=== PATIENT | female | born 1980 | race Caucasian/White ===

== ENCOUNTER 2016-09-24 19:07 | Emergency (ER) | payer OTHER ==
[~2016-09-24] VITALS: Ht 152.4 cm; Wt 56.0 kg
[~2016-09-24 19:07] MED LIST: ACET-1256 PO; IBUP-1050 PO
[2016-09-24 19:22] VITALS: TEMP 37; Ht 152.4 cm; Wt 56.0 kg
[2016-09-24] MEDS ORDERED: XYLOCAINE 1%/SOD BICARB 20 ML VIAL INFIL ONE (19:45)
[2016-09-24] MEDS ORDERED: SULF800T23 PO (19:59)
[2016-09-24] MEDS ORDERED: CEPH500C PO (19:59)
[2016-09-24] MEDS ORDERED: OXYC1TAB3 PO (19:59)
[2016-09-24] MEDS ORDERED: OXYCODONE IR HOME PACK PO ONE (20:15)
[2016-09-24] MEDS ORDERED: CEPHALEXIN 500MG HOME PACK 1 EA BTL PO ONE (20:15)
[2016-09-24] MEDS ORDERED: SEPTRA DS HOME PACK 1 EA VIAL PO ONE (20:15)
[2016-09-24 20:38] VITALS: BP 115/69; PULSE 101; O2SAT 99
--- NOTE | 2016-09-24 22:38 | EMERGENCY ROOM VISIT NOTE ---
History First contact with patient: 19:26 Chief Complaint: WOUND INFECTION Stated Complaint: FEVER,INFECTION ON LEFT BUT CHEEK,MRSA BEFORE Nursing Triage Summary: Pt has abscess on L buttock. Reports she had a similar lump with drainage last week, but has since resolved. History of Present Illness The patient is a 36 year old female who presents to the Emergency Room with complaints of a draining wound on her left buttock. The patient reports that she noticed swelling and pain 2 days ago, but the wound significant he worsened and started to drain today. She reports feeling feverish. She did take Tylenol at home. She reports significant pain when sitting or walking, rating her discomfort a 7 out of 10. The patient does not recall any prior history of antibiotic resistant infections. She has had multiple wounds on her buttock and other areas in the past. Review of Systems 10 system review was performed and was negative except for pertinent positives and negatives as indicated in history of present illness Past Medical/Surgical History Medical Problems: (1) Depression (2) Gastroesophageal reflux disease (3) Migraine (4) Pyloric stenosis Family History Unremarkable Social History Smoking Status: Current Every Day Smoker Alcohol Use: none Drug Use: none Marital Status: single Occupation Status: unemployed Current/Historical Medications Scheduled Cephalexin Monohydrate (Keflex), 500 MG PO QID Sulfa/Trimethoprim (Bactrim Ds 800MG/160MG), 1 TAB PO BID Scheduled PRN Ibuprofen (Advil), 800 MG PO UD PRN for Pain Oxycodone Ir (Roxicodone Ir), 1-2 TAB PO Q4H PRN for Pain Miscellaneous Medications Acetaminophen (Tylenol), 1,000 MG PO Allergies Coded Allergies: Tramadol (Verified Allergy, Intermediate, ITCHY, 09/24/16) Sumatriptan (Unverified Allergy, Unknown, "OUT OF SPACE.", 09/24/16) Uncoded Allergies: WOOL (Allergy, Unknown, UNKNOWN, 05/21/13) Physical Exam Vital Signs Date Time Temp Pulse Resp B/P Pulse Ox O2 Delivery O2 Flow Rate FiO2 09/24/16 20:38 101 18 115/69 99 Room Air 09/24/16 19:22 37.0 119 16 99 Room Air Pain Rating (0-10): 3.0 Physical Exam CONSTITUTIONAL: Healthy and well nourished. Patient does not appear in any acute distress on initial exam. HEENT: Normocephalic, atraumatic. Pupils equal, round and reactive. NECK: Full active range of motion without discomfort. RESPIRATORY: Clear to auscultation bilaterally with no wheezing, crackles, rhonchi or stridor. CARDIOVASCULAR: Regular rate and rhythm with no murmurs, rubs or gallops. GASTROINTESTINAL: Bowel sounds present in all quadrants. Soft and nontender to palpation. MUSCULOSKELETAL: Full range of motion of all joints without discomfort. INTEGUMENTARY: Examination of the left central and upper buttock region shows an area of erythema and underlying induration an approximate size of a golf ball. There is mild purulent drainage from the wound. The patient has other multiple scars from prior skin wounds. NEUROLOGIC: No focal neurologic deficits noted. Medical Decision & Procedures Medications Administered Medications (Trade) Dose Ordered Sig/Tahir Route Start Time Stop Time Status Last Admin Dose Admin Cephalexin Monohydrate (Keflex 500MG Home Pack) 1 homepack NOW ONCE PO 09/24/16 20:15 09/24/16 20:16 DC 09/24/16 20:38 1 HOMEPACK Trimethoprim/ Sulfamethoxazole (Sulfameth/ Trimeth Ds 800/ 160MG Home Pack) 1 homepack UD ONCE PO 09/24/16 20:15 09/24/16 20:16 DC 09/24/16 20:38 1 HOMEPACK Oxycodone HCl (Roxicodone Immediate Rel 5MG Home Pack) 1 homepack UD ONCE PO 09/24/16 20:15 09/24/16 20:16 DC 09/24/16 20:38 1 HOMEPACK Procedure I&D procedure was performed under local anesthesia after receiving verbal consent from the patient. The area was painted with iodine and allowed to dry. Sterile field was created. Using buffered 1% lidocaine without epinephrine, good local anesthesia was administered. Using a #11 scalpel, a 1 cm incision was made with an approximate 1 mL of purulent drainage. Cultures were collected. Needle drivers were then used to further open underlying loculations before wound irrigation with approximately 250 mL of normal saline. 0.25 inch plain packing was then loosely inserted into all reachable margins of the wound, then a bacitracin dry dressing was applied. The patient tolerated the procedure well. ED Course Patient history and physical exam were performed. Nurse's notes were reviewed. I&D procedure was performed under local anesthesia. Cultures were also collected. The patient was instructed to remove the packing in 48 hours. She may return to the emergency department for this procedure, or if the wound appears to be improving, may also be removed at home. She was provided prescriptions for Keflex, Bactrim DS and OxyIR 5 mg. Return to the emergency department for any progressively worsening swelling, pain or developing fever. The patient was happy with plan of care, voiced understanding of all discharge instructions, and rated her pain a 3 out of 10 at the time of discharge. Medical Decision Impression Primary Impression: Left buttock abscess Departure Information Dispostion Home / Self-Care Condition GOOD Prescriptions Oxycodone Ir (Roxicodone Ir) 5 Mg Tab 1-2 TAB PO Q4H Y for Pain, #15 TAB For Initial Treatment Prov: Golden Albarado PA 09/24/16 Sulfa/Trimethoprim (Bactrim Ds 800MG/160MG) Tab 1 TAB PO BID for 7 Days, #14 TAB Prov: Golden Albarado PA 09/24/16 Cephalexin Monohydrate (Keflex) 500 Mg Cap 500 MG PO QID for 7 Days, #28 CAP Prov: Golden Albarado PA 09/24/16 Forms HOME CARE DOCUMENTATION FORM, IMPORTANT VISIT INFORMATION Patient Instructions My [facility] Additional Instructions Complete all Keflex and Bactrim DS antibiotics as prescribed. Keep wound covered with an antibiotic ointment and dressing. Packing will need to be removed in 48 hours. You may remove the packing yourself, or return to the emergency department. Ibuprofen 800 mg and/or Tylenol 1000 mg every 8 hours. You may also alternate these medications for more effective pain relief: Ibuprofen --4 HRS--> Tylenol --4 HRS--> ibuprofen --4 HRS--> Tylenol .... OxyIR if needed for worse pain. Do not drink or drive while taking OxyIR. Return to the emergency department for any progressively worsening pain, swelling or developing fever.
--- NOTE | 2016-09-26 15:34 | Pharmacy Progress Note ---
ED Pharmacist Culture FollowUp Date of Service: Sep 26, 2016. Patient was sent home with a prescription for Keflex 500mg PO QID x 7 days and Bactrim DS 1 PO BID x 7 days, which should cover the staph aureus (MSSA) growing from the patient's L buttock culture. I approached Sidney PEREZ who had seen the patient last to see if we should deescalate ABX therapy to a single agent as both would cover the organism that is growing. He would prefer we continue both agents for this patient at this time. No further action is required.
== END 2016-09-24 20:42 | disposition home or self-care (01) ==
LOC: C.EDB 19:09 → C.EDD 20:42
DX: L02.31 Cutaneous abscess of buttock (principal); F17.200 Nicotine dependence, unspecified, uncomplicated

== ENCOUNTER 2016-12-18 20:35 | Emergency (ER) | payer OTHER ==
[~2016-12-18] VITALS: Ht 152.4 cm; Wt 54.1 kg
[~2016-12-18 20:35] MED LIST changes: +OXYC1TAB3 PO
[2016-12-18 20:43] VITALS: TEMP 37.1; Ht 152.4 cm; Wt 54.1 kg
[2016-12-18] MEDS ORDERED: NORCO 5/325MG HOME PACK PO ONE (21:30)
[2016-12-18] MEDS ORDERED: SEPTRA DS HOME PACK 1 EA VIAL PO ONE (21:30)
[2016-12-18] MEDS ORDERED: CEPHALEXIN 500MG HOME PACK 1 EA BTL PO ONE (21:30)
[2016-12-18] MEDS ORDERED: SULF800T23 PO (21:39)
[2016-12-18] MEDS ORDERED: CEPH500C PO (21:39)
--- NOTE | 2016-12-18 21:39 | EMERGENCY ROOM VISIT NOTE ---
ED Visit Note First contact with patient: 20:51 Chief Complaint: RED Swollen Bites on Leg/Itchy; Hot to Touch, Painful History of Present Illness: Patient is a 36-year-old female who presents to the emergency Department for evaluation of possible bites to her low back and RIGHT lower sternum. She reports they are warm and painful to touch. She noticed the bite to the RIGHT lower extremity approximately one week ago. This morning , she noticed one to her low back. She's had no fevers or chills. She is not a diabetic. She has had multiple abscesses in the past. The patient rates her current discomfort as an 8/10. She denies any drug use. She denies any nausea or vomiting. Medications: Reviewed and discussed with the patient. Allergies: Sumatriptan, tramadol PMH: No pertinent past medical history. SHx: Patient is a 36-year-old female who lives locally. ROS: All pertinent positive and negative review of systems are appropriately documented in the History of Present Illness. Physical Exam: VITAL SIGNS - Vital signs and Nursing Notes were reviewed. GENERAL -36-year-old female, well-developed, well-nourished, and in no acute distress. SKIN -small subcentimeter abscess noted anterior surface of the RIGHT jimenez. Surrounding erythema. Mild induration. No fluctuance to palpation. No discharge or drainage noted. No lymphatic streaking. Minimally warm to touch. NEURO - Patient is A&Ox3 and communicates appropriately with the provider. ED Course: Patient was seen and evaluated by myself. Wound was unroofed on the RIGHT lower extremity. Purulent discharge expressed. Sample was taken for culture. She was treated with Keflex and Bactrim. She is provided Lisle for breakthrough pain. She was educated on worrisome symptoms for return visit to the emergency department. Patient discharged home afebrile and in good condition. In the evaluation and treatment this patient, the following differential diagnoses were considered: Dermatitis, foreign bodies, amongst others. Impression: Cellulitis with Abscess to the RIGHT Lower Extremity Discharge Instructions: You were seen in the Emergency Department for Incision and Drainage of an abscess to the RIGHT lower extremity. You have been provided Lisle to be used for pain control. This is a narcotic medication. You cannot drive or consume alcohol while on this medicine. This medicine should only be used for pain that cannot be controlled with over-the- counter pain medicines. You were prescribed Keflex and Bactrim to be taken as prescribed. Both of these medications are antibiotics. Stop these medications and contact a medical provider if you were to develop any significant adverse side effects including: wheezing, shortness of breath, passing out, vomiting, or a diffuse rash. Always take antibiotics as directed and COMPLETE the ENTIRE course regardless of the improvement of your symptoms. Proper wound care is essential for adequate wound healing and infection prevention. You can shower and clean the wound with soap and water. Do not scour over the wound. Pat dry with a towel. Do not submerse the wound (i.e. bathe or dish wash) until the sutures have been removed. You can use an antibiotic ointment with a dressing over the wound for the next 3-4 days. After this time you may leave the wound dry and open to the air. If crust develops over the wound you can use a Q-tip to apply a 1:1 peroxide:water solution to clean the wound. Look for signs of infection of the wound including: increased pain, swelling, foul discharge, streaking, or increased temperature. If any of these are noticed you should return to the Emergency Department for further assessment and treatment. As with any laceration you may have received nerve damage to the surrounding tissues. This damage may or may not be permanent. For pain control, you can use the following [id number] medicines (if >12 yo): - Regular strength (325mg/tab) Tylenol (acetaminophen) 2 tabs every 4-6 hours as needed. Do not exceed 12 tablets in a 24 hour period. Avoid taking more than 4 grams (4000 mg) of Tylenol per day. This includes any other sources of acetaminophen you may take on a regular basis. - Regular strength (200 mg/tab) Advil (ibuprofen) 1-2 tabs every 4-6 hours as needed. Do not exceed a dose of 3200 mg per day. Return to the emergency department if your symptoms worsen despite treatment course outlined above. Problem List Medical Problems: (1) Depression Status: Chronic (2) Gastroesophageal reflux disease Status: Chronic (3) Migraine Status: Chronic (4) Pyloric stenosis Permanent Comment: congenital Status: Resolved Current/Historical Medications Scheduled Cephalexin Monohydrate (Keflex), 500 MG PO TID Sulfa/Trimethoprim (Bactrim Ds 800MG/160MG), 1 TAB PO BID Scheduled PRN Ibuprofen (Advil), 600 MG PO UD PRN for Pain Allergies Coded Allergies: Tramadol (Verified Allergy, Intermediate, ITCHY, 12/18/16) Sumatriptan (Verified Allergy, Unknown, "OUT OF SPACE.", 12/18/16) Uncoded Allergies: WOOL (Allergy, Unknown, UNKNOWN, 05/21/13) Vital Signs Date Time Temp Pulse Resp B/P Pulse Ox O2 Delivery O2 Flow Rate FiO2 12/18/16 21:46 94 18 129/73 100 12/18/16 20:43 37.1 95 18 146/64 100 Room Air Medications Administered Medications (Trade) Dose Ordered Sig/Tahir Route Start Time Stop Time Status Last Admin Dose Admin Acetaminophen/ Hydrocodone Bitart (Lisle 5/325mg Home Pack) 1 homepack UD ONCE PO 12/18/16 21:30 12/18/16 21:31 DC 12/18/16 21:44 1 HOMEPACK Cephalexin Monohydrate (Keflex 500MG Home Pack) 1 homepack NOW ONCE PO 12/18/16 21:30 12/18/16 21:31 DC 12/18/16 21:44 1 HOMEPACK Trimethoprim/ Sulfamethoxazole (Sulfameth/ Trimeth Ds 800/ 160MG Home Pack) 1 homepack UD ONCE PO 12/18/16 21:30 12/18/16 21:31 DC 12/18/16 21:44 1 HOMEPACK Departure Information Impression Primary Impression: Cellulitis and abscess of lower extremity Dispostion Home / Self-Care Condition GOOD Prescriptions Sulfa/Trimethoprim (Bactrim Ds 800MG/160MG) Tab 1 TAB PO BID for 10 Days, #20 TAB Prov: Tariq Castillo PA-C 12/18/16 Cephalexin Monohydrate (Keflex) 500 Mg Cap 500 MG PO TID for 10 Days, #30 CAP Prov: Tariq Castillo PA-C 12/18/16 Referrals Shellie Raymond M.D. (MEDICAL) (PCP) Patient Instructions My [facility] Additional Instructions You were seen in the Emergency Department for Incision and Drainage of an abscess to the RIGHT lower extremity. You have been provided Lisle to be used for pain control. This is a narcotic medication. You cannot drive or consume alcohol while on this medicine. This medicine should only be used for pain that cannot be controlled with over-the- counter pain medicines. You were prescribed Keflex and Bactrim to be taken as prescribed. Both of these medications are antibiotics. Stop these medications and contact a medical provider if you were to develop any significant adverse side effects including: wheezing, shortness of breath, passing out, vomiting, or a diffuse rash. Always take antibiotics as directed and COMPLETE the ENTIRE course regardless of the improvement of your symptoms. Proper wound care is essential for adequate wound healing and infection prevention. You can shower and clean the wound with soap and water. Do not scour over the wound. Pat dry with a towel. Do not submerse the wound (i.e. bathe or dish wash) until the sutures have been removed. You can use an antibiotic ointment with a dressing over the wound for the next 3-4 days. After this time you may leave the wound dry and open to the air. If crust develops over the wound you can use a Q-tip to apply a 1:1 peroxide:water solution to clean the wound. Look for signs of infection of the wound including: increased pain, swelling, foul discharge, streaking, or increased temperature. If any of these are noticed you should return to the Emergency Department for further assessment and treatment. As with any laceration you may have received nerve damage to the surrounding tissues. This damage may or may not be permanent. For pain control, you can use the following [id number]-[id number] medicines (if >12 yo): - Regular strength (325mg/tab) Tylenol (acetaminophen) 2 tabs every 4-6 hours as needed. Do not exceed 12 tablets in a 24 hour period. Avoid taking more than 4 grams (4000 mg) of Tylenol per day. This includes any other sources of acetaminophen you may take on a regular basis. - Regular strength (200 mg/tab) Advil (ibuprofen) 1-2 tabs every 4-6 hours as needed. Do not exceed a dose of 3200 mg per day. Return to the emergency department if your symptoms worsen despite treatment course outlined above.
[2016-12-18 21:46] VITALS: BP 129/73; PULSE 94; O2SAT 100
== END 2016-12-18 21:47 | disposition home or self-care (01) ==
LOC: C.EDB 20:36 → C.EDD 21:47
DX: S80.861A Insect bite (nonvenomous), right lower leg, initial encounter (principal); L02.415 Cutaneous abscess of right lower limb; L03.115 Cellulitis of right lower limb; S30.860A Insect bite (nonvenomous) of lower back and pelvis, initial encounter; W57.XXXA Bitten or stung by nonvenomous insect and other nonvenomous arthropods, initial encounter

== ENCOUNTER 2023-06-21 11:08 | Inpatient (IN) ==
--- NOTE | 2023-06-21 11:31 | Emergency Department Note ---
ED Provider Note History of Present Illness Chief Complaint: Facial Injury/Pain Stated Complaint: EYES SWELLED SHUT, ALLERGIC REACTION ON FACE 42-year-old female who presents the emergency department for evaluation of facial swelling. Symptoms started yesterday morning. The patient did take some Benadryl, but reports that symptoms are worsening. Patient denies any new topical products. Home Medications Medication Instructions Recorded Confirmed Type ciprofloxacin HCl 0.3 % eye drops 3 drp OPR TID #5 mL 04/17/23 04/20/23 Rx Allergies Allergy/AdvReac Type Severity Reaction Status Date / Time tramadol Allergy Intermediate ITCHY Verified 03/07/20 18:55 sumatriptan Allergy Unknown "OUT OF Verified 03/07/20 18:56 SPACE." Relpax TABS Allergy Unknown Unknown Uncoded 03/07/20 18:56 WOOL Allergy Unknown UNKNOWN Uncoded 03/07/20 18:56 Past Med/Surg History Medical History (Updated 05/02/23 @ 00:07 by Lorena Tran) History of anemia History of anxiety History of depression History of drug dependence History of varicella Migraines Surgical History H/O exploratory laparotomy History of wisdom tooth extraction Family History Mother Diabetes Sister Lung disease Social History Smoking Status: Never smoker Tobacco Type: E-cigarettes / Vaping Second Hand Exposure: Yes; Do You Dip or Chew Tobacco: No; Hx Alcohol Use: No Hx Substance Use: Yes Last Used Substance Other:: last unsed november 2017 Preferred Language: French Communication Ability: Effective Boilers Inspector Required: No Beliefs That Will Affect Care: None marital status: Single Current Living Situation Comment: lives with parents and 16 yo daughter Feels Safe at Home: Yes Discharge Plan Visit Data Chief Complaint: Facial Injury/Pain Stated Complaint: EYES SWELLED SHUT, ALLERGIC REACTION ON FACE ED Provider: MARIAN LAMAS Forms Stand Alone Forms: My [employer] Prescriptions Prescriptions: No Action ciprofloxacin HCl 0.3 % drops 3 drp OPR TID Qty: 5 2RF Rx Instructions: to be used in the right ear, not the eye Referrals Referrals: David Raymond, [Primary Care Provider] -
[2023-06-21] MEDS ORDERED: diphenhydrAMINE 50 MG/ML VIAL IV STA (11:34)
--- NOTE | 2023-06-21 11:34 | ED Triage Note ---
Date of Service June 21, 2023 History of Present Illness This patient was briefly evaluated while in triage. An abbreviated physical exam was performed. This patient is a 42-year-old Female who presents to the ED for evaluation of facial swelling. Symptoms started yesterday morning. The patient did take some Benadryl, but reports that symptoms are worsening. Patient denies any new topical products. Patient rates her discomfort a 9 out of 10. Patient denies any difficulty breathing, sore throat, headaches or fever. Physical Exam CONSTITUTIONAL: Healthy and well nourished. HEENT: Examination shows notable edema and erythema with drainage about the eyes. She also has additional crusting lesions on the face. It involves the parietal scalp area as well. RESPIRATORY: Clear to auscultation bilaterally with no wheezing, crackles, rhonchi or stridor. CARDIOVASCULAR: Regular rate and rhythm with no murmurs, rubs or gallops. INTEGUMENTARY: Other than as described in previous HEENT section, no additional skin rashes appreciated without declothing the patient in triage. HEMATOLOGIC: No ecchymosis or petechiae. PSYCHIATRIC: Positive affect. NEUROLOGIC: No focal neurologic deficits noted. Initial orders for labs and / or imaging were placed and patient was placed in the waiting area until a bed is available. Please see further documentation for the full ED course.
--- NOTE | 2023-06-21 11:58 | Emergency Department Note ---
Impression & Plan Facial cellulitis, Otitis media, Leukocytosis ED Provider Note HISTORY OF PRESENT ILLNESS: Patient is a 42-year-old female presenting with facial swelling and eye discharge. Patient reports that 48 hours ago she woke up and her eyes and cheeks were puffy and swollen. She states that she took a Benadryl and then took Zyrtec. She states that in the last 48 hours the swelling of her eyes got significantly worse and she has "dried out." She states that she cannot really smile or open her mouth significantly secondary to her dry cracked skin that is now present on her face. She also is unable to open her eyes secondary to swelling. She is also started to have purulent discharge from her bilateral eyes in the last 24 hours. Denies any fevers. Denies any new medications. Denies any chest pain or shortness of breath. Denies any difficulty swallowing. She denies any new soaps or detergents. Patient denies any recreational drug use recently. Denies any narvaez to the face. She reports that her face feels like it is burning. ROS: as above PHYSICAL EXAM: Constitutional: Patient appears in no acute distress. HENT: Head: Normocephalic and atraumatic. Patient has dry, cracked skin to the entirety of her face. Face has multiple blotchy patches of erythema. Ears: Right TM shows purulent discharge behind TM. Eyes: EOMI, PERRL. Eyelids are sealed shut secondary to dry, cracked skin of the eyelids. Noted to have purulent discharge from the bilateral eyes. Mouth/Throat: Mucous membranes moist. Neck: Trachea midline. Neck supple. Cardiovascular: Tachycardic with regular rhythm. No murmurs, rubs or gallops. Intact distal pulses. Pulmonary/Chest: No respiratory distress. Breath sounds clear and equal bilaterally. No wheezes or rales Abdominal: Abdomen soft, no tenderness, rebound or guarding. Musculoskeletal: No edema, tenderness or deformity noted. Skin: Warm and dry. No rash, erythema, pallor or cyanosis Psychiatric: Appropriate mood and affect for situation. Neurological: Alert and keenly responsive. CN II-XII grossly intact, moving all extremities equally and fully. MDM: - Vitals signs showed tachycardia - History obtained via patient. Patient presents with facial swelling and eye discharge. Patient reports that 48 hours ago she woke up with swelling of her eyes and discharge from her bilateral eyes. Reports in the last 48 hours she is taken a Benadryl and a Zyrtec and states that her swelling is gotten significantly worse and her face has become very dry. She cannot smile or open her mouth significantly secondary to her dry cracked skin. She denies any new food exposures. She denies any fevers. Denies any medications. Denies any new soaps or detergents. She denies any recreational drug use recently. Denies anything blowing up or burning near her face. - Chronic conditions affecting care: Anxiety/depression - Differential diagnoses include, but are not limited to: Cellulitis; facial burn; allergic reaction - Order placed for continuous cardiac monitoring. At this time, monitor showed rate of 94 bpm with normal sinus rhythm, per my interpretation. - External medical records reviewed. ER note dated 04/20/2023 was reviewed. At that time patient was using methamphetamine - Laboratory workup interpreted by myself showed leukocytosis (WBC 26.52) with left shift; stable electrolytes - UA showed evidence of infection - UDS positive for benzos and methamphetamine. - I discussed results with the patient and inquired multiple times as to any products that she may have put on her face. She does have a previous history of methamphetamine use, but she adamantly reports she has not been using it. I even inquired if she has recently tried to use acidic chemicals such as bleach on her face, which she adamantly denies. Patient's facial swelling is cellulitis versus a facial burn for an unknown reason. We did culture the discharge from her bilateral eyes. She is complaining of right ear pain and she does have some purulent discharge behind the right TM. - Blood cultures were obtained. Patient was started on IV vancomycin and Unasyn for broad-spectrum coverage - Discussion was had with social media marketer about patient's case and need for admission - Hospitalist consulted for admission - Patient admitted to [facility] for further evaluation and management. ASSESSMENT AND PLAN: Diagnosis: facial cellulitis; otitis media; leukocytosis Plan: admit Past Med/Surg History Medical History (Updated 06/21/23 @ 15:44 by Elli Wiley PA-C) History of anemia History of anxiety History of depression History of drug dependence History of varicella Migraines Surgical History H/O exploratory laparotomy History of wisdom tooth extraction Family History Mother Diabetes Sister Lung disease Social History Smoking Status: Never smoker Tobacco Type: E-cigarettes / Vaping Second Hand Exposure: Yes; Do You Dip or Chew Tobacco: No; Hx Alcohol Use: No Hx Substance Use: Yes Last Used Substance Other:: last unsed november 2017 Preferred Language: Niuean Communication Ability: Effective Pain Coordinator Required: No Beliefs That Will Affect Care: None marital status: Single Current Living Situation Comment: lives with parents and 16 yo daughter Feels Safe at Home: Yes Allergies Allergies Allergy/AdvReac Type Severity Reaction Status Date / Time tramadol Allergy Intermediate ITCHY Verified 06/21/23 15:26 sumatriptan Allergy Unknown "OUT OF Verified 06/21/23 15:26 SPACE." Relpax TABS Allergy Unknown Unknown Uncoded 06/21/23 15:26 WOOL Allergy Unknown UNKNOWN Uncoded 06/21/23 15:26 Home Meds Home Medications Medication Instructions Recorded Confirmed acetaminophen 500 mg tablet 1,000 mg PO Q6H PRN Pain 06/21/23 06/21/23 (Tylenol Extra Strength) ibuprofen 200 mg tablet 400 mg PO Q6H PRN Pain 06/21/23 06/21/23 Results & Data (ED) Vital Signs Vital Signs - 24 hr 06/21/23 11:29 06/21/23 12:04 06/21/23 12:39 Temperature 36.7 C Temperature Source Temporal Artery Scan Pulse Rate 140 H 94 H Pulse Rate [Apical] 102 H Pulse Rate from SpO2 Sensor Respiratory Rate 18 18 Blood Pressure 128/83 Blood Pressure [Right Arm] 132/84 Blood Pressure Mean 98 Blood Pressure Mean [Right Arm] 100 Pulse Oximetry 98 98 Oxygen Delivery Method Room Air Room Air Sepsis Recent Fever Within 48 Hours No Sepsis New/Unexplained Change in Mental Status No Sepsis Action Taken by Nursing No Action Required 06/21/23 12:30 06/21/23 13:00 06/21/23 13:00 Temperature Temperature Source Pulse Rate 84 91 H Pulse Rate [Apical] Pulse Rate from SpO2 Sensor 87 85 Respiratory Rate 25 H 24 Blood Pressure 115/76 Blood Pressure [Right Arm] Blood Pressure Mean 88 Blood Pressure Mean [Right Arm] Pulse Oximetry 97 100 Oxygen Delivery Method Room Air Room Air Sepsis Recent Fever Within 48 Hours Sepsis New/Unexplained Change in Mental Status Sepsis Action Taken by Nursing 06/21/23 13:34 06/21/23 14:00 06/21/23 14:00 Temperature Temperature Source Pulse Rate 80 81 Pulse Rate [Apical] Pulse Rate from SpO2 Sensor 82 Respiratory Rate 12 28 H Blood Pressure 119/81 Blood Pressure [Right Arm] Blood Pressure Mean 97 Blood Pressure Mean [Right Arm] Pulse Oximetry 100 Oxygen Delivery Method Room Air Sepsis Recent Fever Within 48 Hours Sepsis New/Unexplained Change in Mental Status Sepsis Action Taken by Nursing 06/21/23 14:30 Temperature Temperature Source Pulse Rate 109 H Pulse Rate [Apical] Pulse Rate from SpO2 Sensor 111 H Respiratory Rate 23 Blood Pressure Blood Pressure [Right Arm] Blood Pressure Mean Blood Pressure Mean [Right Arm] Pulse Oximetry 100 Oxygen Delivery Method Room Air Sepsis Recent Fever Within 48 Hours Sepsis New/Unexplained Change in Mental Status Sepsis Action Taken by Nursing Laboratory Data 06/21/23 11:37 06/21/23 11:37 Lab Results 06/21/23 06/21/23 06/21/23 Range/Units 11:37 11:37 11:42 WBC 26.52 H (4.8-10.8) K/ul RBC 4.49 (4.20-5.40) M/uL Hgb 12.7 (12.0-16.0) g/dl Hct 37.4 (37.0-47.0) % MCV 83.3 (80.0-100.0) fL MCH 28.3 (25.0-34.0) pg MCHC 34.0 (32.0-36.0) g/dL RDW Std Deviation 41.0 (36.4-46.3) fL RDW Coeff of Ulices 13.5 (11.5-14.5) % Plt Count 287 (130-400) K/uL MPV 10.9 (9.4-12.4) fL Immature Gran % (Auto) 0.5 % Neut % (Auto) 83.8 % Lymph % (Auto) 9.1 % [place] % (Auto) 6.4 % Eos % (Auto) 0.0 % Baso % (Auto) 0.2 % Neut # (Auto) 22.18 H (1.40-6.50) K/uL Lymph # (Auto) 2.42 (1.20-3.40) K/uL [place] # (Auto) 1.71 H (0.11-0.59) K/uL Eos # (Auto) 0.01 (0.00-0.50) K/uL Baso # (Auto) 0.06 (0.00-0.20) K/uL Immature Gran # (Auto) 0.14 (0.01-0.20) K/uL Sodium 136 (136-145) mmol/L Potassium 3.6 (3.5-5.1) mmol/L Chloride 105 (98-107) mmol/L Carbon Dioxide 22 (21-32) mmol/L Anion Gap 9 (3-11) BUN 8 (6-23) mg/dl Creatinine 0.66 (0.6-1.2) mg/dl Est Cr Clr Drug Dosing Not Reportable Est GFR ( Amer) 128.1 ml/min Est GFR (Non-Af Amer) 110.5 ml/min BUN/Creatinine Ratio 12.1 (10-20) Glucose 110 H (70-99(Fasting)) mg/dl Calcium 9.8 (8.6-10.3) mg/dl Total Bilirubin 0.8 (0.2-1.0) mg/dl AST 31 (13-39) U/L ALT 19 (7-52) U/L Alkaline Phosphatase 66 (34-104) U/L Total Protein 7.9 (6.0-8.3) gm/dl Albumin 4.5 (3.4-5.0) gm/dl Globulin 3.4 (2.5-4.0) gm/dl Albumin/Globulin Ratio 1.3 (0.9-2) Procalcitonin 0.10 (0-0.5) ng/ml Urine Color Urine Appearance (Clear) Urine pH (4.5-7.5) Ur Specific Driscoll (1.000-1.030) Urine Protein (Negative) Urine Glucose (UA) (Negative) Urine Ketones (Negative) Urine Blood (Negative) Urine Nitrite (Negative) Urine Bilirubin (Negative) Urine Urobilinogen (Negative) Ur Leukocyte Esterase (Negative) Urine WBC (Auto) (0-5) /hpf Urine RBC (Auto) (0-4) /hpf U Hyaline Cast (Auto) (0-5) /lpf U Epithel Cells (Auto) (0-5) /lpf Urine Bacteria (Auto) (Negative) Urine Mucus (None Prsent) Urine Opiates Screen (Neg) Ur Methadone, Qual (Neg) Urine Barbiturates (Neg) Ur Phencyclidine (PCP) (Neg) U Amphetamin/Meth Scrn (Neg) MDMA (Ecstasy) Screen (Neg) U Benzodiazepines Scrn (Neg) Ur Cocaine Metabolite (Neg) U Marijuana (THC) Screen (Neg) 06/21/23 06/21/23 Range/Units 13:26 13:26 WBC (4.8-10.8) K/ul RBC (4.20-5.40) M/uL Hgb (12.0-16.0) g/dl Hct (37.0-47.0) % MCV (80.0-100.0) fL MCH (25.0-34.0) pg MCHC (32.0-36.0) g/dL RDW Std Deviation (36.4-46.3) fL RDW Coeff of Ulices (11.5-14.5) % Plt Count (130-400) K/uL MPV (9.4-12.4) fL Immature Gran % (Auto) % Neut % (Auto) % Lymph % (Auto) % [place] % (Auto) % Eos % (Auto) % Baso % (Auto) % Neut # (Auto) (1.40-6.50) K/uL Lymph # (Auto) (1.20-3.40) K/uL [place] # (Auto) (0.11-0.59) K/uL Eos # (Auto) (0.00-0.50) K/uL Baso # (Auto) (0.00-0.20) K/uL Immature Gran # (Auto) (0.01-0.20) K/uL Sodium (136-145) mmol/L Potassium (3.5-5.1) mmol/L Chloride (98-107) mmol/L Carbon Dioxide (21-32) mmol/L Anion Gap (3-11) BUN (6-23) mg/dl Creatinine (0.6-1.2) mg/dl Est Cr Clr Drug Dosing Est GFR ( Amer) ml/min Est GFR (Non-Af Amer) ml/min BUN/Creatinine Ratio (10-20) Glucose (70-99(Fasting)) mg/dl Calcium (8.6-10.3) mg/dl Total Bilirubin (0.2-1.0) mg/dl AST (13-39) U/L ALT (7-52) U/L Alkaline Phosphatase (34-104) U/L Total Protein (6.0-8.3) gm/dl Albumin (3.4-5.0) gm/dl Globulin (2.5-4.0) gm/dl Albumin/Globulin Ratio (0.9-2) Procalcitonin (0-0.5) ng/ml Urine Color Yellow Urine Appearance Cloudy A (Clear) Urine pH 6.0 (4.5-7.5) Ur Specific Driscoll 1.018 (1.000-1.030) Urine Protein 1+ H (Negative) Urine Glucose (UA) Negative (Negative) Urine Ketones 2+ H (Negative) Urine Blood Trace H (Negative) Urine Nitrite Negative (Negative) Urine Bilirubin Negative (Negative) Urine Urobilinogen Negative (Negative) Ur Leukocyte Esterase Trace H (Negative) Urine WBC (Auto) 5-10 H (0-5) /hpf Urine RBC (Auto) 0-4 (0-4) /hpf U Hyaline Cast (Auto) 1-5 (0-5) /lpf U Epithel Cells (Auto) >30 H (0-5) /lpf Urine Bacteria (Auto) 1+ H (Negative) Urine Mucus Present A (None Prsent) Urine Opiates Screen Neg (Neg) Ur Methadone, Qual Neg (Neg) Urine Barbiturates Neg (Neg) Ur Phencyclidine (PCP) Neg (Neg) U Amphetamin/Meth Scrn Pos H (Neg) MDMA (Ecstasy) Screen Neg (Neg) U Benzodiazepines Scrn Pos H (Neg) Ur Cocaine Metabolite Neg (Neg) U Marijuana (THC) Screen Neg (Neg) Administered Medications Discontinued Medications Diphenhydramine HCl (Diphenhydramine 50 Mg/Ml Vial) 50 mg IV NOW STA Stop: 06/21/23 11:35 Last Admin: 06/21/23 12:01 Dose: 50 mg Documented By: DANNA Vancomycin HCl 1,250 mg/ (Sodium Chloride) 525 mls @ 200 mls/hr IV NOW ONE Stop: 06/21/23 14:50 Last Admin: 06/21/23 14:30 Dose: 200 mls/hr Documented By: DANNA Ampicillin Sodium/Sulbactam Sodium 3,000 mg/ Sodium Chloride 100 mls @ 200 mls/hr IV NOW STA Stop: 06/21/23 13:48 Last Infusion: 06/21/23 14:26 Dose: 0 mls/hr Documented By: Admin: 06/21/23 13:56 Dose: 200 mls/hr Documented By: DANNA Acetaminophen (Ofirmev) 1,000 mg in 100 mls @ 400 mls/hr IV NOW STA Stop: 06/21/23 15:31 Last Infusion: 06/21/23 16:02 Dose: 0 mls/hr Documented By: Admin: 06/21/23 15:36 Dose: 400 mls/hr Documented By: HANSEL Discharge Plan Visit Data Chief Complaint: Facial Injury/Pain Stated Complaint: EYES SWELLED SHUT, ALLERGIC REACTION ON FACE ED Provider: Galina Kuo Discharge Problem: Facial cellulitis, Otitis media, Leukocytosis Forms Stand Alone Forms: [facility] Prescriptions Prescriptions: No Action acetaminophen [Tylenol Extra Strength] 500 mg Tablet 1,000 mg PO Q6H PRN (Reason: Pain) ibuprofen 200 mg Tablet 400 mg PO Q6H PRN (Reason: Pain) Referrals Referrals: David Raymond, [Primary Care Provider] -
[2023-06-21 12:03] LABS: Hematocrit (blood only) 37.4 % (37.0-47.0); Hemoglobin 12.7 g/dl (12.0-16.0); Mean Corpuscular Hemoglobin 28.3 pg (25.0-34.0); Mean Corpuscular Volume 83.3 fL (80.0-100.0); Mean Platelet Volume 10.9 fL (9.4-12.4); Platelet Count 287 K/uL (130-400); RDW Coefficient of Variation 13.5 % (11.5-14.5); Red Blood Count 4.49 M/uL (4.20-5.40); White Blood Count 26.52 K/ul (4.8-10.8)
[2023-06-21] MEDS ORDERED: AMPICILLIN SOD/SULBACTAM SOD 3 GM VIAL IV ONE (12:13)
[2023-06-21] MEDS ORDERED: VANCOMYCIN HCL 1,250 MG in SODIUM CHLORIDE 0.9% 500 ML IV ONE (12:13)
[2023-06-21] MEDS ORDERED: VANCOMYCIN CONSULT ACTIVE PRN ×2 (12:13→16:13)
[2023-06-21 12:17] LABS: Alanine Aminotransferase 19 U/L (7-52); Albumin Globulin Ratio 1.3 (0.9-2); Albumin Level 4.5 gm/dl (3.4-5.0); Alkaline Phosphatase 66 U/L (34-104); Anion Gap 9 (3-11); Aspartate Aminotransferase 31 U/L (13-39); BUN Creatinine Ratio 12.1 (10-20); Bilirubin,Total 0.8 mg/dl (0.2-1.0); Blood Urea Nitrogen 8 mg/dl (6-23); Calcium 9.8 mg/dl (8.6-10.3); Carbon Dioxide 22 mmol/L (21-32); Chloride 105 mmol/L (98-107); Est GFR (African American) 128.1 ml/min; Est GFR (Non-African American) 110.5 ml/min; Globulin 3.4 gm/dl (2.5-4.0); Glucose 110 mg/dl (70-99(Fasting)); Potassium 3.6 mmol/L (3.5-5.1); Sodium 136 mmol/L (136-145); Total Protein 7.9 gm/dl (6.0-8.3)
[2023-06-21 12:32] LABS: Basophils # (auto) 0.06 K/uL (0.00-0.20); Basophils % (auto) 0.2 %; Eosinophils # (auto) 0.01 K/uL (0.00-0.50); Immature Granulocytes # (auto) 0.14 K/uL (0.01-0.20); Immature Granulocytes % (auto) 0.5 %; Lymphocytes # (auto) 2.42 K/uL (1.20-3.40); Lymphocytes % (auto) 9.1 %; Monocytes # (auto) 1.71 K/uL (0.11-0.59); Monocytes % (auto) 6.4 %; Neutrophils # (auto) 22.18 K/uL (1.40-6.50); Neutrophils % (auto) 83.8 %
[2023-06-21] MEDS ORDERED: UNASYN 3000MG / NS q6h IV STA (13:19)
[2023-06-21 13:49] LABS: Appearance Urine Cloudy (Clear); Bacteria Urine Automated 1+ (Negative); Bilirubin Urine Negative (Negative); Blood Urine Trace (Negative); Color Urine Yellow; Epithelial Cell Urine Auto >30 /lpf (0-5); Glucose Urine UA Negative (Negative); Ketones Urine 2+ (Negative); Leukocyte Esterase Urine Trace (Negative); Nitrite Urine Negative (Negative); Protein Urine 1+ (Negative); Specific Gravity Urine 1.018 (1.000-1.030); Urobilinogen Urine Negative (Negative)
[2023-06-21 14:02] LABS: Mucus Urine Present (None Prsent); RBC Urine Automated 0-4 /hpf (0-4)
[2023-06-21 14:19] LABS: Amphetamines+Metham, Urine Pos (Neg); Barbiturates, Urine Neg (Neg); Benzodiazepine, Urine Pos (Neg); Cocaine, Urine Neg (Neg); MDMA (Ecstacy), Urine Neg (Neg); Methadone, Urine Neg (Neg); Opiate, Urine Neg (Neg); Phencyclidine, Urine Neg (Neg)
[2023-06-21] MEDS ORDERED: ACETAMINOPHEN 1,000 MG/100 ML VIAL IV STA ×2 (15:17→20:49)
--- NOTE | 2023-06-21 15:46 | History & Physical Report ---
Date of Service June 21, 2023 Assessment & Plan (1) Facial cellulitis: (2) Leukocytosis: Plan: - Admit to PCU - unknown cause of reaction at this time - pt denies new exposure to medications, cleansers/cream/soaps, drug use, smoke or chemical exposure or vapor. Concerning that pt is not forthcoming with drug use history with mother present at bedside, as well as pt eventually telling me that she got adderall and valium from friend 2-3 days ago? - Concern for allergic vs rapidly progressing facial cellulitis and multiple areas of involvement of the eyes bilaterally, face, R TM with purulent material within past 48 hours. Right TM with purulent material behind it, + tragus tenderness. - CT of the maxillary sinuses/face is pending - Call out to Infectious disease as well as ENT to discuss management options - - ID consulted formally, appreciate recs - ENT - called Dr. Sonny Nielsen synchronous motor assembler for [facility], await call back Denies any recent drug abuse. - WBC of 26 K - Will continue on vanc and zosyn IV now - will modify if per ENT/ID - Cultures of eye drainage obtained in the ER, pending - consider erythromycin eye ointment - Avoid soaps, cleansers - Consider wound consultation pending ENT/ID recs as above (3) Methamphetamine abuse: Plan: - Tachycardic on admission, noted positive tox screening for amphetamines and benzo - Pt admits to using valium for sleep a few days ago, as well as taking an Adderall tablet - these were obtained by a friend, she is not prescribed these medications. PDMP reviewed and discussed with the patient. - Continue drug cessation, advise against opioid medications for pain, can use IV tylenol if needed for pain (4) MDD (major depressive disorder): (5) AYLEEN (generalized anxiety disorder): Plan: - Hx of such - Not currently on medication - noted use of valium as above (6) Tobacco use: Plan: - Encouraged cessation, will order nicotine patch (7) UTI (urinary tract infection): Plan: - UA appears to be infected, antibiotics as prescribed above will cover such - Follow urine culture - Pt denies symptoms presently DVT ppx: teds, scds Lines: 2 PIV CODE: FULL FEN/GI: Allow regular diet Dispo: From home, likely to remain in the hospital x 2 days History of Present Illness Chief Complaint: Facial injury Primary Care Provider: David Raymond DO This is a 42-year-old female with PMHx of methamphetamine drug abuse, tobacco use cigarettes 1 ppd previously, now vapes, AYLEEN who presents to the hospital with facial injury. Pt was seen in March for R ear pain, told she had outer and inner ear infection. A stent was placed in the R ear so that drops could be administered more easily. After that she feels it was better but not back to complete baseline. She has had issues in the R ear for years. This past On Saturday her face abd skin was completely normal. Saturday she woke up and her eyes were puffy, unable to open them, with redness. Over the past 2 days her face swelling has improved but can not open her eyes at all, with pus like exudate gluing her eyes shut. Pt has used black charcoal soap on her face and feels it has dried things out, but had used it previously. Pt also notes some bumps on her scalp behind her ears, which started yesterday. Denies fever, chills, sweats. She denies new cleanser use, exposure to chemical substances, drug use, inhalation, etc. Pt reports that she has been clean from methamphetamine for 2 years. Pt admits after discussion regarding of drug tox that she took valium that was given to her from friend a few days ago to help sleep. She vapes with nicotine and uses a few different vape pens, she last used vape this morning. Denies any recent new fills for vape. Allergies Allergy/AdvReac Type Severity Reaction Status Date / Time tramadol Allergy Intermediate ITCHY Verified 06/21/23 15:26 eletriptan [From Relpax] Allergy Unknown Unknown Verified 06/21/23 16:36 sumatriptan Allergy Unknown "OUT OF Verified 06/21/23 15:26 SPACE." wool Allergy Unknown Unknown Verified 06/21/23 16:36 Home Medications Medication Instructions Recorded Confirmed Type acetaminophen 500 mg tablet 1,000 mg PO Q6H PRN Pain 06/21/23 06/21/23 History (Tylenol Extra Strength) ibuprofen 200 mg tablet 400 mg PO Q6H PRN Pain 06/21/23 06/21/23 History Past Med/Surg History Medical History (Updated 06/21/23 @ 16:42 by Elli Wiley PA-C) History of anemia History of anxiety History of depression History of drug dependence History of varicella Migraines Surgical History H/O exploratory laparotomy History of wisdom tooth extraction Family History Mother Diabetes Sister Lung disease Social History Smoking Status: Never smoker Tobacco Type: E-cigarettes / Vaping Second Hand Exposure: Yes; Do You Dip or Chew Tobacco: No; Hx Alcohol Use: No Hx Substance Use: Yes Last Used Substance Other:: last unsed november 2017 Preferred Language: Divehi Communication Ability: Effective House 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 Required: No Beliefs That Will Affect Care: None marital status: Single Current Living Situation Comment: lives with parents and 16 yo daughter Feels Safe at Home: Yes Review of Systems Review of Systems: Constitutional: No fever, sweats or chills Eyes: No diplopia, no worsening or blurred vision - as per HPI with purulent drainage and inability to open eyes ENT: chronic R ear pain, no discharge, normal hearing, no trouble swallowing, no issues with tongue swelling Respiratory: No cough, sputum, dyspnea at rest or on exertion Cardiovascular: No chest pain, tightness or palpitations Abdomen: No pain, nausea, vomiting, diarrhea or constipation Musculoskeletal: No joint pain, calf pain, swelling Neurologic: No weakness, numbness/tingling, or balance problems Psychiatric: No anxiety or depression Skin: No rash or itch Physical Exam Physical Exam: General: awake, alert, no apparent distress Head: Normocephalic, + significant facial involvement with taught skin, no bright red erythema but skin discoloration, eyes with purulent material bilaterally, multiple areas on scalp which are edematous, erythematous. ENT: PERRL, EOMI, no pharyngeal exudate, mucous membranes moist, small erythematous lesion over throat similar to ones on her scalp. Extremities: Normal inspection, no peripheral edema or erythema, calfs nontender to palpation Psych: Normal mood and affect Neuro: AAO x 3, strength intact bilaterally and rated 5/5, no motor deficits, speech is clear, no peripheral sensory deficits Please refer to attending addendum for complete H&P. Results & Data Results & Data Vital Signs (Past 12 Hours) Vital Signs Temp Pulse Pulse Resp BP BP Pulse Ox 06/21/23 14:30 109 H 23 100 06/21/23 14:00 81 28 H 100 06/21/23 14:00 119/81 06/21/23 13:34 80 12 06/21/23 13:00 91 H 24 100 06/21/23 13:00 115/76 06/21/23 12:30 84 25 H 97 06/21/23 12:39 94 H 06/21/23 12:04 102 H 18 132/84 98 06/21/23 11:29 36.7 C 140 H 18 128/83 98 O2 Del Method 06/21/23 14:30 Room Air 06/21/23 14:00 Room Air 06/21/23 14:00 06/21/23 13:34 06/21/23 13:00 Room Air 06/21/23 13:00 06/21/23 12:30 Room Air 06/21/23 12:39 06/21/23 12:04 Room Air 06/21/23 11:29 Room Air Laboratory Results 06/21/23 13:30 Gram Stain - Pending Eye Wound Culture - Pending 06/21/23 13:26 Urine Culture - Pending Urine,Clean Catch 06/21/23 13:19 Aerobic Blood Culture - Pending Blood Anaerobic Blood Culture - Pending 06/21/23 13:19 Aerobic Blood Culture - Pending Blood Anaerobic Blood Culture - Pending 06/21/23 06/21/23 06/21/23 13:26 13:26 11:42 WBC RBC Hgb Hct MCV MCH MCHC RDW Std Deviation RDW Coeff of Ulices Plt Count MPV Immature Gran % (Auto) Neut % (Auto) Lymph % (Auto) [place] % (Auto) Eos % (Auto) Baso % (Auto) Neut # (Auto) Lymph # (Auto) [place] # (Auto) Eos # (Auto) Baso # (Auto) Immature Gran # (Auto) Sodium Potassium Chloride Carbon Dioxide Anion Gap BUN Creatinine Est Cr Clr Drug Dosing Est GFR ( Amer) Est GFR (Non-Af Amer) BUN/Creatinine Ratio Glucose Calcium Total Bilirubin AST ALT Alkaline Phosphatase Total Protein Albumin Globulin Albumin/Globulin Ratio Procalcitonin 0.10 Urine Color Yellow Urine Appearance Cloudy A Urine pH 6.0 Ur Specific [place] 1.018 Urine Protein 1+ H Urine Glucose (UA) Negative Urine Ketones 2+ H Urine Blood Trace H Urine Nitrite Negative Urine Bilirubin Negative Urine Urobilinogen Negative Ur Leukocyte Esterase Trace H Urine WBC (Auto) 5-10 H Urine RBC (Auto) 0-4 U Hyaline Cast (Auto) 1-5 U Epithel Cells (Auto) >30 H Urine Bacteria (Auto) 1+ H Urine Mucus Present A Urine Opiates Screen Neg Ur Methadone, Qual Neg Urine Barbiturates Neg Ur Phencyclidine (PCP) Neg U Amphetamin/Meth Scrn Pos H MDMA (Ecstasy) Screen Neg U Benzodiazepines Scrn Pos H Ur Cocaine Metabolite Neg U Marijuana (THC) Screen Neg 06/21/23 06/21/23 11:37 11:37 WBC 26.52 H RBC 4.49 Hgb 12.7 Hct 37.4 MCV 83.3 MCH 28.3 MCHC 34.0 RDW Std Deviation 41.0 RDW Coeff of Ulices 13.5 Plt Count 287 MPV 10.9 Immature Gran % (Auto) 0.5 Neut % (Auto) 83.8 Lymph % (Auto) 9.1 [place] % (Auto) 6.4 Eos % (Auto) 0.0 Baso % (Auto) 0.2 Neut # (Auto) 22.18 H Lymph # (Auto) 2.42 [place] # (Auto) 1.71 H Eos # (Auto) 0.01 Baso # (Auto) 0.06 Immature Gran # (Auto) 0.14 Sodium 136 Potassium 3.6 Chloride 105 Carbon Dioxide 22 Anion Gap 9 BUN 8 Creatinine 0.66 Est Cr Clr Drug Dosing Not Reportable Est GFR ( Amer) 128.1 Est GFR (Non-Af Amer) 110.5 BUN/Creatinine Ratio 12.1 Glucose 110 H Calcium 9.8 Total Bilirubin 0.8 AST 31 ALT 19 Alkaline Phosphatase 66 Total Protein 7.9 Albumin 4.5 Globulin 3.4 Albumin/Globulin Ratio 1.3 Procalcitonin Urine Color Urine Appearance Urine pH Ur Specific [place] Urine Protein Urine Glucose (UA) Urine Ketones Urine Blood Urine Nitrite Urine Bilirubin Urine Urobilinogen Ur Leukocyte Esterase Urine WBC (Auto) Urine RBC (Auto) U Hyaline Cast (Auto) U Epithel Cells (Auto) Urine Bacteria (Auto) Urine Mucus Urine Opiates Screen Ur Methadone, Qual Urine Barbiturates Ur Phencyclidine (PCP) U Amphetamin/Meth Scrn MDMA (Ecstasy) Screen U Benzodiazepines Scrn Ur Cocaine Metabolite U Marijuana (THC) Screen Code Status & VTE Plan Code Status Full code -- discussed with the patient at bedside. Supervising Physician Co-Signing Physician Notes 42 year old woman who presents with facial swelling, pain that started 2 days ago Has chronic Rt ear problems that she stated also worsened recently Facial swelling and pain has worsened to the point she cannot open her eyes Denied fevers, chills, nausea, vomiting, cough, chest pain, SOB, sorethroat, Acknowledged taking amphetamine and benzo from a friend by mouth Denied snorting or IVDU Acknowledges vaping nicotine. No change in her nicotine/soaps/cream/facial cleansers No travels or sick contacts On Exam, General: Erythematous tender skin over face and eyes Eyes: Eye shut with thick purulent secretion. Was only able to open the left eye myself, erythematous conjunctiva ENMT: Right ear: tragal tenderness, fullness behind TM. Difficulty visualizing left TM Neck: Normal visual inspection, no tracheal deviation, no swelling noted Respiratory: Normal respiratory effort, no respiratory distress, lungs clear to auscultation, no crackles and no wheezes Cardiovascular: RRR S1 S2 Gastrointestinal (Abdomen): Abdomen is not distended, soft, non-tender to palpation, no guarding, no palpable hepatosplenomegaly, normal bowel sounds Musculoskeletal: No pedal edema Genitourinary: No CVA tenderness Skin: Erythematous lesion in hair on head Neurologic: Alert and oriented x 3, No focal weakness, sensation grossly intact Psychiatric: Euthymic affect Facial cellulitis ?Complicated Otitis media Cannot rule out some form of allergic reaction. Does meet SIR criteria with leukocytosis, tachycardia Hence possible sepsis Vanc and zosyn Follow up blood cultures, culture from eye discharge Discussed with ID Dr Woo. Recommends HIV, hepatitis panel ENT consult Monitor airway Counseled regarding vaping. Concerned there may be more with respect to illicit drug use
[2023-06-21] MEDS ORDERED: VANCOMYCIN HCL 1,500 MG in SODIUM CHLORIDE 0.9% 500 ML IV ONE (16:13)
[2023-06-21] MEDS ORDERED: PIPER/TAZO 4.5g in D5W MINI-B 100 ML IV ONE (16:30)
[2023-06-21] MEDS ORDERED: Patient's HEIGHT &/or WEIGHT Needed SCH (16:45)
[2023-06-21] MEDS ORDERED: OPTIRAY 320 100ml IV ONE (16:51)
[2023-06-21] MEDS: BACITRACIN OINT 14 GM TUBE EXT SCH ×2 (17:01→21:09)
--- NOTE | 2023-06-21 17:11 | CT Scan Report ---
CT mastoid w con CLINICAL HISTORY: right ear infection; ear pain TECHNIQUE: Multidetector row helical CT of the temporal bones was following administration of intrave nous contrast. Thin coronal and sagittal reformations were obtained. Automated dose lowering techniqu es and/or adjustment according to patient size were utilized for this exam. CT DOSE: 599.42 mGy.cm Comparison: Comparison is made to CT orbit 07/07/2012 FINDINGS: No fractures are seen. There is opacification of a very few left mastoid air cells. The right mastoid air cells are clear. There is soft tissue density in the right external ear canal. No middle ear opa cification is seen, the ossicles appear intact. The inner ear structures are unremarkable. Soft tissu e swelling is seen most prominent in the in the bilateral periorbital soft tissues. No drainable flui d collection. IMPRESSION: Soft tissue swelling and right external auditory canal soft tissue without middle or inner ear involv ement. No drainable fluid collections are seen. Findings may represent facial cellulitis. ACT 112: Negative or not required by law. Electronically signed by: Mal Clay M.D. 06/21/2023 5:10 PM
--- NOTE | 2023-06-21 17:59 | Pharmacy Report ---
Pharmacy PK ABX Note - Date of Service June 21, 2023 - Assessment and Plan Assessment 42 year old F receiving Zosyn/vancomycin for treatment of allergic vs rapidly progressing facial cellulitis with multiple areas of involvement of the eyes bilaterally, face, R TM with purulent material. Pertinent microbiologic data includes: eye drainage, urine and blood cultures pending. Day # 1 of antimicrobial therapy. Plan Vancomycin * Loading dose: 1250 mg IV x 1 * Maintenance dose: 750 mg IV every 8 hours * Regimen is predicted to achieve target AUC/SAUL of 400-600 mg/L.hr * Trough level ordered for: 06/21/23 @ 1130 Pharmacy will continue to follow and will adjust dose/frequency as necessary. Thank you. Pharmacy has transitioned to AUC monitoring for vancomycin. AUC/SAUL is the preferred PK/PD target and is associated with decreased risk of nephrotoxicity compared to traditional trough targets.
[2023-06-21 19:37] LABS: Adenovirus PCR Not Detected (NotDetected); Bordetella parapertussis PCR Not Detected (NotDetected); Bordetella pertussis PCR Not Detected (NotDetected); Chlamydia pneumoniae PCR Not Detected (NotDetected); Coronavirus 229E PCR Not Detected (NotDetected); Coronavirus CoV-2 (COVID19)PCR Not Detected (NotDetected); Coronavirus HKU1 PCR Not Detected (NotDetected); Coronavirus NL63 PCR Not Detected (NotDetected); Coronavirus OC43PCR Not Detected (NotDetected); Human Metapneumovirus PCR Not Detected (NotDetected); Influenza A PCR Not Detected (NotDetected); Influenza B PCR Not Detected (NotDetected); Mycoplasma pneumoniae PCR Not Detected (NotDetected); Parainfluenza Virus 1 PCR Not Detected (NotDetected); Parainfluenza Virus 2 PCR Not Detected (NotDetected); Parainfluenza Virus 3 PCR Not Detected (NotDetected); Parainfluenza Virus 4 PCR Not Detected (NotDetected); Respiratory Syncytial VirusPCR Not Detected (NotDetected); Rhinovirus/Enterovirus PCR Not Detected (NotDetected)
[2023-06-21] MEDS ORDERED: ONDANSETRON INJ 2 MG/ML 2 ML VIAL IV PRN (19:53)
[2023-06-21] MEDS: VANCOMYCIN HCL 750 MG in SODIUM CHLORIDE 0.9% 250 ML IV SCH (20:30)
[2023-06-21] MEDS ORDERED: HYDROmorphone INJ 0.5 MG/0.5 ML SYR IV STA (20:42)
[2023-06-21] MEDS: NICOTINE 14 MG/24 HR PATCH TD SCH (21:07)
[2023-06-21] MEDS ORDERED: KETOROLAC TROMETHAMINE 15 MG/ML VIAL IV ONE (22:52)
[2023-06-21] MEDS: PIPERACILLIN/TAZOBACTAM 4.5 GM in DEXTROSE 5% MINI-B 100 ML IV SCH (23:44)
[2023-06-22] MEDS: VANCOMYCIN HCL 750 MG in SODIUM CHLORIDE 0.9% 250 ML IV SCH ×2 (04:43→12:42)
[2023-06-22 06:19] LABS: Hematocrit (blood only) 34.7 % (37.0-47.0); Hemoglobin 11.6 g/dl (12.0-16.0); Mean Corpuscular Hemoglobin 28.6 pg (25.0-34.0); Mean Corpuscular Hgb Conc 33.4 g/dL (32.0-36.0); Mean Corpuscular Volume 85.5 fL (80.0-100.0); Mean Platelet Volume 11.2 fL (9.4-12.4); Platelet Count 268 K/uL (130-400); RDW Coefficient of Variation 13.9 % (11.5-14.5); RDW Standard Deviation 43.7 fL (36.4-46.3); Red Blood Count 4.06 M/uL (4.20-5.40); White Blood Count 17.23 K/ul (4.8-10.8)
[2023-06-22 06:45] LABS: BUN Creatinine Ratio 12.7 (10-20); Calcium 8.9 mg/dl (8.6-10.3); Creatinine Clr Calc Pharmacy 107.6 ml/min; Est GFR (Non-African American) 117.3 ml/min; Potassium 3.5 mmol/L (3.5-5.1)
[2023-06-22] MEDS ORDERED: POTASSIUM CHLORIDE CRTAB 20 MEQ TABCR PO STA (07:08)
--- NOTE | 2023-06-22 07:19 | Hospitalist Progress Note ---
Date of Service June 22, 2023 Assessment & Plan (1) Facial cellulitis: (2) Leukocytosis: (3) Methamphetamine abuse: (4) MDD (major depressive disorder): (5) AYLEEN (generalized anxiety disorder): (6) Tobacco use: (7) UTI (urinary tract infection): Plan Ms. Isaías Arredondo is a 42-year-old woman with PMHx of methamphetamine drug abuse, tobacco use cigarettes 1 ppd previously, now vapes, AYLEEN who was admitted due to concern of facial cellulitis. Multiple diffuse pustules behind ears and in scalp with notable swelling of periorbital area. Discussion with Dr. Sim, Dermatology, over tiger text revealed high suspicion for impetigo type skin manefestation. Planning for culture of pustule if able to unroof. Bacitracin to areas of skin sloughing, erythromycin to eyes. 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 - CT of the maxillary sinuses with tissue swelling, no fluid collections, middle ear involvement; PE sparing mucosa - ID consulted formally, appreciate recs -HIV, HSV, Varicella, and hepatitis pending -ENT contacted, imaging unremarkable at this time -Eye culture with Staph species -Erythromycin QID to eyes -Bacitracin to skin sloughing -Monitor for spreading to other areas -Vanc/Zosyn while ID workup continues -Derm consulted-suspect impetigo, agrees with current management -Wound for culture of pustule, additional care -Contact precautions given staph species, MRSA pending #Methamphetamine abuse [Adderall misuse] #Benzodiazepine abuse - Tachycardic on admission, noted positive tox screening for amphetamines and benzo -Tachycardia resolved, no sign of sympathomimetic intoxication: hyperthermia, hypertension, agitation, ACS, arrhythmia -LFTS wnl, renal function stable -Monitor for signs of withdrawal #AYLEEN Hx of such - Not currently on medication - noted use of valium as above -Caution against serotonergic medication iso continued methamphetamine abuse, discuss cessation, if needed will trial hydroxyzine #Tobacco Use - Encouraged cessation, will order nicotine patch #Abnormal UA - UA appears to be infected, antibiotics as prescribed above will cover such - Follow urine culture - Pt denies symptoms presently DVT ppx: teds, scds Lines: 2 PIV CODE: FULL FEN/GI: Allow regular diet Admission and Anticipated Discharge Date Admission Date: June 21, 2023 Subjective NAEO Patient denies any notable change at this time. Reviewing recent history, she denies any sick contacts, any snorting/smoking of any illicit substances, she denies any outright contact with chemicals or substances to face/scalp Unable to open eyes, pain behind ears and in scalp, mouth painful to open but denies in sores along gumline Review of Systems Review of Systems: All systems reviewed & are unremarkable except as noted in Subjective Physical Exam Constitutional: WD/WN, vitals as above Eyes: swollen shut, patient able to freely move eye behind lid without pain ENMT: diffuse swelling, skin appears taught with areas of sloughing around skin skin with pustules diffusely, notably behind ears bilaterally with gold crusting mucosa spared Respiratory: normal respiratory effort, lungs clear to auscultation Cardiovascular: RRR, no murmur, no edema Results & Data Results & Data Vital Signs (Past 12 Hours) Vital Signs Temp Pulse Pulse Resp BP BP Pulse Ox 06/22/23 02:35 37 C 70 16 115/68 99 06/21/23 23:13 94 H 06/21/23 19:58 67 06/21/23 22:50 36.7 C 86 18 121/71 97 06/21/23 19:55 37.4 C 102 H 16 128/77 94 06/21/23 19:32 37.2 C 107 H 28 H 130/86 100 O2 Del Method 06/22/23 02:35 Room Air 06/21/23 23:13 06/21/23 19:58 06/21/23 22:50 Room Air 06/21/23 19:55 Room Air 06/21/23 19:32 Room Air Laboratory Results Short CBC 06/21/23 06/22/23 Range/Units 11:37 05:41 WBC 26.52 H 17.23 H (4.8-10.8) K/ul Hgb 12.7 11.6 L (12.0-16.0) g/dl Hct 37.4 34.7 L (37.0-47.0) % Plt Count 287 268 (130-400) K/uL BMP 06/21/23 06/22/23 11:37 05:41 Sodium 136 140 Potassium 3.6 3.5 Chloride 105 108 H Carbon Dioxide 22 24 BUN 8 7 Creatinine 0.66 0.55 L Glucose 110 H 86 Calcium 9.8 8.9 Liver Function 06/21/23 Range/Units 11:37 Total Bilirubin 0.8 (0.2-1.0) mg/dl AST 31 (13-39) U/L ALT 19 (7-52) U/L Alkaline Phosphatase 66 (34-104) U/L Albumin 4.5 (3.4-5.0) gm/dl Urine 06/21/23 Range/Units 13:26 Urine Color Yellow Urine Appearance Cloudy A (Clear) Urine pH 6.0 (4.5-7.5) Ur Specific [place] 1.018 (1.000-1.030) Urine Protein 1+ H (Negative) Urine Glucose (UA) Negative (Negative) Diagnostic Findings CT mastoid w con CLINICAL HISTORY: right ear infection; ear pain TECHNIQUE: Multidetector row helical CT of the temporal bones was following administration of intravenous contrast. Thin coronal and sagittal reformations were obtained. Automated dose lowering techniques and/or adjustment according to patient size were utilized for this exam. CT DOSE: 599.42 mGy.cm Comparison: Comparison is made to CT orbit 07/07/2012 FINDINGS: No fractures are seen. There is opacification of a very few left mastoid air ce lls. The right mastoid air cells are clear. There is soft tissue density in the right external ear canal. No middle ear opacification is seen, the ossicles appear intact. The inner ear structures are unremarkable. Soft tissue swelling is seen most prominent in the in the bilateral periorbital soft tissues. No drainable fluid collection. IMPRESSION: Soft tissue swelling and right external auditory canal soft tissue without middle or inner ear involvement. No drainable fluid collections are seen. Findings may represent facial cellulitis. ACT 112: Negative or not required by law. Medications Administered Home Medications Medication Instructions Recorded Confirmed Last Taken acetaminophen 500 mg tablet 1,000 mg PO Q6H PRN Pain 06/21/23 06/21/23 06/21/23 07:30 (Tylenol Extra Strength) ibuprofen 200 mg tablet 400 mg PO Q6H PRN Pain 06/21/23 06/21/23 06/21/23 07:00 Active Medications Generic Name Dose Route Start Last Admin Trade Name Freq PRN Reason Stop Dose Admin Bacitracin 1 appln 06/21/23 15:00 06/21/23 21:09 Bacitracin Oint 14 Gm Tube EXT 07/21/23 14:59 1 appln TID DANIELA Administration Piperacillin Sod/Tazobactam 100 mls @ 25 mls/hr 06/22/23 00:00 06/22/23 04:00 Sod 4.5 gm/ Dextrose IV 06/29/23 00:00 Infused Q8H DANIELA Infusion Protocol Vancomycin HCl 750 mg/ Sodium 265 mls @ 200 mls/hr 06/21/23 20:00 06/22/23 04:43 Chloride IV 06/28/23 19:59 199 mls/hr Q8H DANIELA Administration Nicotine 14 mg 06/21/23 20:00 06/21/23 21:07 Nicotine 14 Mg/24 Hr Patch TD 07/21/23 19:59 14 mg QAM DANIELA Administration
[2023-06-22 08:02] LABS: Estimated Average Glucose 111 mg/dl; Hemoglobin A1C 5.5 % (4.5-5.6)
[2023-06-22] MEDS: PIPERACILLIN/TAZOBACTAM 4.5 GM in DEXTROSE 5% MINI-B 100 ML IV SCH ×4 (08:50→23:52)
[2023-06-22] MEDS: NICOTINE 14 MG/24 HR PATCH TD SCH (08:51)
[2023-06-22] MEDS ORDERED: KETOROLAC TROMETHAMINE 15 MG/ML VIAL IV STA (09:06)
[2023-06-22] MEDS ORDERED: ERYTHROMYCIN OP OINT 1 GM PKT OP SCH (09:30)
[2023-06-22] MEDS ORDERED: HYDROmorphone INJ 0.5 MG/0.5 ML SYR IV PRN (09:44)
[2023-06-22] MEDS ORDERED: VANCOMYCIN LEVEL ONE (11:00)
[2023-06-22] MEDS: ERYTHROMYCIN OP OINT 5 MG/GM 3.5 GM TUBE OP SCH ×4 (11:10→21:19)
[2023-06-22] MEDS: BACITRACIN OINT 14 GM TUBE EXT SCH ×3 (11:12→21:19)
[2023-06-22] MEDS: KETOROLAC TROMETHAMINE 15 MG/ML VIAL IV PRN ×2 (14:47→20:27)
--- NOTE | 2023-06-22 15:35 | Pharmacy Report ---
Pharmacy PK ABX Note - Date of Service June 22, 2023 - Assessment and Plan Assessment 42 year old F receiving Zosyn/vancomycin for treatment of allergic vs rapidly progressing facial cellulitis with multiple areas of involvement of the eyes bilaterally, face, R TM with purulent material. Pertinent microbiologic data includes: eye culture with Staph species Plan Vancomycin * Target AUC/SAUL of 400-600 mg/L.hr * Trough of 7.8 mcg/mL is associated with a suptherapeutic AUC/SAUL of 373 mg/L.hr * Will increase maintenance dose from 750 to 1000 mg IV q8h. * Trough level ordered for: 06/24/23 @ 0130 Pharmacy will continue to follow and will adjust dose/frequency as necessary. Thank you. Pharmacy has transitioned to AUC monitoring for vancomycin. AUC/SAUL is the preferred PK/PD target and is associated with decreased risk of nephrotoxicity compared to traditional trough targets.
[2023-06-22] MEDS: VANCOMYCIN HCL 1,000 MG in SODIUM CHLORIDE 0.9% 250 ML IV SCH (17:56)
[2023-06-22] MEDS: ACETAMINOPHEN 325 MG TAB PO PRN (20:31)
[2023-06-23] MEDS: VANCOMYCIN HCL 1,000 MG in SODIUM CHLORIDE 0.9% 250 ML IV SCH ×3 (01:54→17:49)
[2023-06-23] MEDS: ACETAMINOPHEN 325 MG TAB PO PRN (02:02)
[2023-06-23] MEDS: KETOROLAC TROMETHAMINE 15 MG/ML VIAL IV PRN ×4 (03:02→21:54)
[2023-06-23 06:01] LABS: Hematocrit (blood only) 30.4 % (37.0-47.0); Hemoglobin 10.2 g/dl (12.0-16.0); Mean Corpuscular Hemoglobin 28.7 pg (25.0-34.0); Mean Corpuscular Hgb Conc 33.6 g/dL (32.0-36.0); Mean Corpuscular Volume 85.4 fL (80.0-100.0); Mean Platelet Volume 11.1 fL (9.4-12.4); Platelet Count 261 K/uL (130-400); RDW Coefficient of Variation 13.9 % (11.5-14.5); RDW Standard Deviation 43.4 fL (36.4-46.3); Red Blood Count 3.56 M/uL (4.20-5.40); White Blood Count 12.69 K/ul (4.8-10.8)
[2023-06-23 06:22] LABS: BUN Creatinine Ratio 14.9 (10-20); Calcium 8.4 mg/dl (8.6-10.3); Creatinine Clr Calc Pharmacy 125.9 ml/min; Est GFR (African American) 143.2 ml/min; Est GFR (Non-African American) 123.6 ml/min; Magnesium 1.6 mg/dl (1.7-2.4); Phosphorus 2.4 mg/dl (2.5-4.9); Potassium 3.8 mmol/L (3.5-5.1)
[2023-06-23] MEDS ORDERED: POT PHOSPHATE MONOBASIC W/ SOD TAB PO STA (07:34)
--- NOTE | 2023-06-23 07:34 | Hospitalist Progress Note ---
Date of Service June 23, 2023 Assessment & Plan (1) Facial cellulitis: (2) Leukocytosis: (3) Methamphetamine abuse: (4) MDD (major depressive disorder): (5) AYLEEN (generalized anxiety disorder): (6) Tobacco use: (7) UTI (urinary tract infection): Plan Ms. Isaías Arredondo is a 42-year-old woman with PMHx of methamphetamine drug abuse, tobacco use cigarettes 1 ppd previously, now vapes, AYLEEN who was admitted due to concern of facial cellulitis. Multiple diffuse pustules behind ears and in scalp with notable swelling of periorbital area. Discussion with Dr. Sim, Dermatology, over tiger text revealed high suspicion for impetigo type skin manifestation. Unable to unroof pustule as tense top, limited 2/2 pain. Bacitracin to areas of skin sloughing, erythromycin to eyes. Improvement noted with current regimen MRSA positive, therefore contact precautions. 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 - CT of the maxillary sinuses with tissue swelling, no fluid collections, middle ear involvement; PE sparing mucosa - ID consulted formally, appreciate recs -HIV, HSV, Varicella, and hepatitis pending -ENT contacted, imaging unremarkable at this time -Eye culture with Staph species -Erythromycin QID to eyes -Bacitracin to skin sloughing -Monitor for spreading to other areas -Discontinue Zosyn -Continue Vancomycin -Derm consulted-suspect impetigo, agrees with current management -Wound for culture of pustule, additional care -Contact precautions given staph species, MRSA + #Methamphetamine abuse [Adderall misuse, denies other sources of methamphetamine] #Benzodiazepine abuse - Tachycardic on admission, noted positive tox screening for amphetamines and benzo -Tachycardia resolved, no signs of sympathomimetic intoxication: hyperthermia, hypertension, agitation, ACS, arrhythmia -LFTS wnl, renal function stable -Monitor for signs of withdrawal #AYLEEN Hx of such - Not currently on medication - noted use of valium as above -Caution against serotonergic medication iso continued methamphetamine abuse, discuss cessation, if needed will trial hydroxyzine #Tobacco Use - Encouraged cessation, will order nicotine patch #Abnormal UA - UA appears to be infected, antibiotics as prescribed above will cover such - Follow urine culture - Pt denies symptoms presently DVT ppx: teds, scds Lines: 2 PIV CODE: FULL FEN/GI: Allow regular diet Admission and Anticipated Discharge Date Admission Date: June 21, 2023 Subjective NAEO Reports notable improvement this am--able to open eyes and mouth to some degree States pain medication wears off just at around 4-5 hours, and is q 6h, discussed optimizing Review of Systems Review of Systems: All systems reviewed & are unremarkable except as noted in Subjective Physical Exam Constitutional: WD/WN, vitals as above Eyes: crusting around eyelids, able to open, no conjunctival injection noted ENMT: areas of skin sloughing, well hydrated with topical bacitracin, able to talk and move mouth with less limitation 2/2 pain; pustules behind ears crusted over Respiratory: normal respiratory effort, lungs clear to auscultation Cardiovascular: RRR, no murmur, no edema Results & Data Results & Data Vital Signs (Past 12 Hours) Vital Signs Temp Pulse Pulse Resp BP Pulse Ox O2 Del Method 06/23/23 00:00 06/23/23 03:00 36.7 C 83 16 118/72 98 Room Air 06/22/23 21:55 108 H 06/22/23 22:49 36.8 C 89 18 113/89 98 Room Air O2 Del Method 06/23/23 00:00 Room Air 06/23/23 03:00 06/22/23 21:55 06/22/23 22:49 Laboratory Results Short CBC 06/23/23 Range/Units 05:33 WBC 12.69 H (4.8-10.8) K/ul Hgb 10.2 L (12.0-16.0) g/dl Hct 30.4 L (37.0-47.0) % Plt Count 261 (130-400) K/uL BMP 06/23/23 05:33 Sodium 139 Potassium 3.8 Chloride 110 H Carbon Dioxide 24 BUN 7 Creatinine 0.47 L Glucose 109 H Calcium 8.4 L Medications Administered Home Medications Medication Instructions Recorded Confirmed Last Taken acetaminophen 500 mg tablet 1,000 mg PO Q6H PRN Pain 06/21/23 06/21/23 06/21/23 07:30 (Tylenol Extra Strength) ibuprofen 200 mg tablet 400 mg PO Q6H PRN Pain 06/21/23 06/21/2323 07:00 Active Medications Generic Name Dose Route Start Last Admin Trade Name Freq PRN Reason Stop Dose Admin Acetaminophen 650 mg 06/21/23 19:53 06/23/23 02:02 Acetaminophen 325 Mg Tab PO 07/21/23 19:52 650 mg Q4H PRN Administration Moderate Pain (Scale 4, 5, 6) Bacitracin 1 appln 06/21/23 15:00 06/23/23 08:11 Bacitracin Oint 14 Gm Tube EXT 07/21/23 14:59 1 appln TID DANIELA Administration Erythromycin 1 appln 06/22/23 09:45 06/23/23 08:10 Erythromycin Op Oint 5 Mg/Gm 3.5 Gm Tube OP 07/02/23 09:44 1 appln QID DANIELA Administration Piperacillin Sod/Tazobactam 100 mls @ 25 mls/hr 06/22/23 00:00 06/23/23 08:09 Sod 4.5 gm/ Dextrose IV 06/29/23 00:00 25 mls/hr Q8H DANIELA Administration Protocol Vancomycin HCl 1,000 mg/ 270 mls @ 200 mls/hr 06/22/23 18:00 06/23/23 09:53 Sodium Chloride IV 06/29/23 17:59 200 mls/hr Q8H DANIELA Administration Magnesium Sulfate/Dextrose 1 gm in 100 mls @ 50 mls/hr 06/23/23 07:45 06/23/23 09:53 Magnesium Sulfate / D5w IV 06/23/23 11:44 50 mls/hr Q2H DANIELA Administration Miscellaneous 1 each 06/22/23 08:59 06/23/23 08:11 Remove Nicoderm Patch N/A 07/22/23 08:58 1 each DAILY@0859 DANIELA Administration Nicotine 14 mg 06/21/23 20:00 06/23/23 08:11 Nicotine 14 Mg/24 Hr Patch TD 07/21/23 19:59 14 mg QAM DANIELA Administration
[2023-06-23] MEDS: MAGNESIUM SULFATE / D5W 1 GM/100 ML BAG IV SCH ×2 (07:59→09:53)
[2023-06-23] MEDS: PIPERACILLIN/TAZOBACTAM 4.5 GM in DEXTROSE 5% MINI-B 100 ML IV SCH ×3 (08:09→23:50)
[2023-06-23] MEDS: ERYTHROMYCIN OP OINT 5 MG/GM 3.5 GM TUBE OP SCH ×4 (08:10→21:49)
[2023-06-23] MEDS: NICOTINE 14 MG/24 HR PATCH TD SCH (08:11)
[2023-06-23] MEDS: BACITRACIN OINT 14 GM TUBE EXT SCH ×3 (08:11→21:48)
[2023-06-23] MEDS ORDERED: ERYTHROMYCIN OP OINT 5 MG/GM 3.5 GM TUBE OP SCH (09:00)
[2023-06-23] MEDS ORDERED: KETOROLAC TROMETHAMINE 15 MG/ML VIAL ONE (09:37)
--- NOTE | 2023-06-23 16:31 | Magnetic Resonance Report ---
MR venography head wo con HISTORY: 42 years-old Female periortbital cellulitis acute facial pain COMPARISON: CT mastoids 2022 TECHNIQUE: MRV was obtained without the use of IV contrast with MIPS reformats. FINDINGS: No cerebral venous thrombus identified. Study is within normal limits. IMPRESSION: Normal exam. ACT 112: Negative or not required by law. The above report was generated using voice recognition software. It may contain grammatical, syntax o r spelling errors. Electronically signed by: Kirill Mederos M.D. 06/23/2023 4:30 PM
[2023-06-24] MEDS ORDERED: VANCOMYCIN LEVEL ONE (01:30)
[2023-06-24 02:01] LABS: Hematocrit (blood only) 29.3 % (37.0-47.0); Hemoglobin 9.7 g/dl (12.0-16.0); Mean Corpuscular Hemoglobin 28.2 pg (25.0-34.0); Mean Corpuscular Hgb Conc 33.1 g/dL (32.0-36.0); Mean Corpuscular Volume 85.2 fL (80.0-100.0); Mean Platelet Volume 11.1 fL (9.4-12.4); Platelet Count 271 K/uL (130-400); RDW Coefficient of Variation 13.8 % (11.5-14.5); Red Blood Count 3.44 M/uL (4.20-5.40); White Blood Count 10.14 K/ul (4.8-10.8)
[2023-06-24 02:06] LABS: BUN Creatinine Ratio 6.9 (10-20); Calcium 8.8 mg/dl (8.6-10.3); Creatinine Clr Calc Pharmacy 82.2 ml/min; Est GFR (African American) 121.4 ml/min; Est GFR (Non-African American) 104.8 ml/min; Potassium 3.4 mmol/L (3.5-5.1)
[2023-06-24] MEDS: VANCOMYCIN HCL 1,000 MG in SODIUM CHLORIDE 0.9% 250 ML IV SCH ×2 (02:20→09:06)
[2023-06-24] MEDS: KETOROLAC TROMETHAMINE 15 MG/ML VIAL IV PRN ×4 (06:34→20:02)
[2023-06-24] MEDS ORDERED: POTASSIUM CHLORIDE CRTAB 20 MEQ TABCR PO STA (07:22)
--- NOTE | 2023-06-24 07:22 | Hospitalist Progress Note ---
Date of Service June 24, 2023 Assessment & Plan (1) Facial cellulitis: (2) Leukocytosis: (3) Methamphetamine abuse: (4) MDD (major depressive disorder): (5) AYLEEN (generalized anxiety disorder): (6) Tobacco use: (7) UTI (urinary tract infection): Plan Ms. Isaías Arredondo is a 42-year-old woman with PMHx of methamphetamine drug abuse, tobacco use cigarettes 1 ppd previously, now vapes, AYLEEN who was admitted due to concern of facial cellulitis. Multiple diffuse pustules behind ears and in scalp with notable swelling of periorbital area. Discussion with Dr. Sim, Dermatology, over tiger text revealed high suspicion for impetigo type skin manifestation. Unable to unroof pustule as tense top, limited 2/2 pain. Bacitracin to areas of skin sloughing, erythromycin to eyes. Improvement noted with current regimen MRSA positive, therefore contact precautions. 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 - CT of the maxillary sinuses with tissue swelling, no fluid collections, middle ear involvement; PE sparing mucosa - ID consulted formally, appreciate recs -HIV, HSV, Varicella, and hepatitis pending -ENT contacted, imaging unremarkable at this time -Eye culture with Staph species -Erythromycin QID to eyes -Bacitracin to skin sloughing -Monitor for spreading to other areas -Discontinue Zosyn -Transitioned to cefazolin as staph MSSA on eye cultures -Derm consulted-suspect impetigo, agrees with current management -Wound for culture of pustule, additional care -Contact precautions given staph species, MRSA + -Awaiting ID input regarding duration of treatment and deescalation of regimen #Methamphetamine abuse [Adderall misuse, denies other sources of methamphetamine] #Benzodiazepine abuse -Patient does not use any other illicit, to include "meth"--patient has misused adderall from a "friend" but denies other use of substances and does not exhibit drug seeking tendencies - Tachycardic on admission, noted positive tox screening for amphetamines and benzo -Tachycardia resolved, no signs of sympathomimetic intoxication: hyperthermia, hypertension, agitation, ACS, arrhythmia -LFTS wnl, renal function stable -Monitor for signs of withdrawal #AYLEEN Hx of such - Not currently on medication - noted use of valium as above -Stable #Tobacco Use - Encouraged cessation, will order nicotine patch #Abnormal UA #Gardnerella in UA - UA appears to be infected, antibiotics as prescribed above will cover such - Follow urine culture - Pt denies symptoms presently -Likely covered by 3 days of zosyn; encouraged patient to discuss with partner and ensure treatment handled with partner DVT ppx: teds, scds Lines: 2 PIV CODE: FULL FEN/GI: Allow regular diet Admission and Anticipated Discharge Date Admission Date: June 21, 2023 Subjective NAEO Patient in good spirits this am, conversational reports notable improvement, with majority of pain now isolated to right ear Review of Systems Review of Systems: All systems reviewed & are unremarkable except as noted in Subjective Physical Exam Constitutional: WD/WN, vitals as above Respiratory: normal respiratory effort, lungs clear to auscultation Cardiovascular: RRR, no murmur, no edema Skin: decreased erythema and skin peeling on exam, few pustules around left ear, dry erythema on right ear Results & Data Results & Data Vital Signs (Past 12 Hours) Vital Signs Temp Pulse Pulse Resp BP Pulse Ox O2 Del Method 06/24/23 03:21 37.0 C 77 16 116/76 97 Room Air 06/23/23 23:05 36.7 C 90 20 111/62 98 Room Air 06/23/23 22:00 94 H 06/23/23 19:33 36.9 C 88 20 113/66 98 Room Air Laboratory Results Short CBC 06/24/23 Range/Units 01:36 WBC 10.14 (4.8-10.8) K/ul Hgb 9.7 L (12.0-16.0) g/dl Hct 29.3 L (37.0-47.0) % Plt Count 271 (130-400) K/uL BMP 06/24/23 01:36 Sodium 140 Potassium 3.4 L Chloride 108 H Carbon Dioxide 29 BUN 5 L Creatinine 0.72 Glucose 118 H Calcium 8.8 Medications Administered Home Medications Medication Instructions Recorded Confirmed Last Taken acetaminophen 500 mg tablet 1,000 mg PO Q6H PRN Pain 06/21/23 06/21/23 06/21/23 07:30 (Tylenol Extra Strength) ibuprofen 200 mg tablet 400 mg PO Q6H PRN Pain 06/21/23 06/21/23 06/21/23 07:00 Active Medications Generic Name Dose Route Start Last Admin Trade Name Freq PRN Reason Stop Dose Admin Acetaminophen 650 mg 06/21/23 19:53 06/23/23 02:02 Acetaminophen 325 Mg Tab PO 07/21/23 19:52 650 mg Q4H PRN Administration Moderate Pain (Scale 4, 5, 6) Bacitracin 1 appln 06/21/23 15:00 06/24/23 13:02 Bacitracin Oint 14 Gm Tube EXT 07/21/23 14:59 1 appln TID DANIEAL Administration Erythromycin 1 appln 06/22/23 09:45 06/24/23 13:02 Erythromycin Op Oint 5 Mg/Gm 3.5 Gm Tube OP 07/02/23 09:44 1 appln QID DANIELA Administration Ketorolac Tromethamine 15 mg 06/23/23 09:23 06/24/23 10:40 Ketorolac Tromethamine 15 Mg/Ml Vial IV 06/27/23 09:43 15 mg Q4H PRN Administration Pain baseline Miscellaneous 1 each 06/22/23 08:59 06/24/23 09:08 Remove Nicoderm Patch N/A 07/22/23 08:58 Not Given DAILY@0859 [facility] Nicotine 14 mg 06/21/23 20:00 06/24/23 09:08 Nicotine 14 Mg/24 Hr Patch TD 07/21/23 19:59 Not Given [facility]
[2023-06-24 07:57] LABS: HBSAG NON-REACTIVE (NON-REACTIVE)
[2023-06-24] MEDS: PIPERACILLIN/TAZOBACTAM 4.5 GM in DEXTROSE 5% MINI-B 100 ML IV SCH (09:06)
[2023-06-24] MEDS: BACITRACIN OINT 14 GM TUBE EXT SCH ×3 (09:06→20:04)
[2023-06-24] MEDS: ERYTHROMYCIN OP OINT 5 MG/GM 3.5 GM TUBE OP SCH ×4 (09:07→20:04)
[2023-06-24] MEDS: NICOTINE 14 MG/24 HR PATCH TD SCH (09:08)
[2023-06-24 09:28] LABS: 7-Aminoclonaz, Confirm NEGATIVE ng/mL (<25); Amphetamine Urine, Confirm 3793 ng/mL (<250); Hydro-Alp Ur, GC/MS 72 ng/mL (<25); Hydroxyethylflurazepam, Conf NEGATIVE ng/mL (<50); Hydroxymidazolam Ur, GC/MS NEGATIVE ng/mL (<50); Hydroxytriazolam NEGATIVE ng/mL (<50); Lorazepam, Ur GC/MS NEGATIVE ng/mL (<50); Methamphetamine, Ur Confirm NEGATIVE ng/mL (<250); Nordiazepam, Confirm NEGATIVE ng/mL (<50); Oxazepam Ur, GC/MS NEGATIVE ng/mL (<50); Temazepam, Confirm NEGATIVE ng/mL (<50)
--- NOTE | 2023-06-24 11:13 | Pharmacy Report ---
Pharmacy PK ABX Note - Date of Service June 24, 2023 - Assessment and Plan Assessment 42 year old F receiving Zosyn/vancomycin for treatment of allergic vs rapidly progressing facial cellulitis with multiple areas of involvement of the eyes bilaterally, face, R TM with purulent material. Pertinent microbiologic data includes: eye culture with MSSA Plan Vancomycin * Current regimen: 1000 mg IV every 8 hours * Trough level obtained 06/24/23 resulted as 10.9 mcg/mL. This is predicted to achieve target AUC/SAUL of 400-600 mg/L.hr * Predicted AUC at steady state: 600 mg/L.hr * Continue 1000 mg IV every 8 hours. * Repeat level will be ordered in 48 hours if still on therapy Zosyn * 4.5 grams IV every 8 hours Pharmacy will continue to follow and will adjust dose/frequency as necessary. Thank you. Pharmacy has transitioned to AUC monitoring for vancomycin. AUC/SAUL is the preferred PK/PD target and is associated with decreased risk of nephrotoxicity compared to traditional trough targets.
--- NOTE | 2023-06-24 14:04 | Infectious Disease Consult ---
Date of Service June 24, 2023 Telehealth Information I performed this visit using a real-time telehealth connection between my location and the patients location ([facility]). After connecting through interactive tele-video, patient was identified by name and date of and/or wristband check.Patient (or authorized healthcare patient financial representative) was informed that this was a telemedicine visit and it was being conducted confidentially over secure lines. My office door was closed and no one else was present in the room with me.Patient (or authorized healthcare patient financial representative) provided consent to proceed with the visit, expressed an understanding of privacy and security of the telemedicine visit, and gave permission to have a hospital patient financial representative in the room in order to assist with the visit and to conduct portions of the visit, as needed. I informed the patient (or authorized healthcare patient financial representative) that I reviewed their record and presented the opportunity for them to ask any questions regarding the visit today. The patient agreed to participate. Assessment & Plan (1) Facial cellulitis: Plan: This appears markedly improved compared to her photo from 06/21/23. WBC now back to normal. No fevers. Given the cultures with MSSA, I would suggest stopping the cefazolin and placing her on amoxicillin-clavulanate 875mg po bid to extend another 7-10 days at home. She can continue the topical therapy as well with bacitracin and erythromycin. History of Present Illness History of Present Illness Ms. Arredondo is a 42yo female who presented to [facility] on 06/21/23 with a 2-3 day h/o progressive facial swelling, pain and drainage from her eyes. She reports that this resulted in difficulty with her vision. At the same time she had ear fullness and congestion and felt generally unwell. She is unsure if she had any fever. No chills. She did not take any antibiotics at home prior to coming to the ED. Here she was noted to be tachycardic with a WBC of 26K. She was started on vanc and pip-tazo, but this was eventually transitioned to cefazolin. Cultures from her eye discharge showed MSSA, though she did have a swab from her nares that was MRSA positive. Today she is feeling markedly better. She still feels tired, but getting back to normal. Allergies Allergy/AdvReac Type Severity Reaction Status Date / Time tramadol Allergy Intermediate ITCHY Verified 06/21/23 15:26 eletriptan [From Relpax] Allergy Unknown Unknown Verified 06/21/23 16:36 sumatriptan Allergy Unknown "OUT OF Verified 06/21/23 15:26 SPACE." wool Allergy Unknown Unknown Verified 06/21/23 16:36 Home Medications Medication Instructions Recorded Confirmed Type acetaminophen 500 mg tablet 1,000 mg PO Q6H PRN Pain 06/21/23 06/21/23 History (Tylenol Extra Strength) ibuprofen 200 mg tablet 400 mg PO Q6H PRN Pain 06/21/23 06/21/23 History Patient History Medical History History of anemia History of anxiety History of depression History of drug dependence History of varicella Migraines Surgical History H/O exploratory laparotomy History of wisdom tooth extraction Family History Mother Diabetes Sister Lung disease Social History Smoking Status: Current every day smoker Tobacco Type: E-cigarettes / Vaping Second Hand Exposure: Yes; Do You Dip or Chew Tobacco: No; Hx Alcohol Use: No Hx Substance Use: Yes Last Used Substance: Days (ago) Last Used Substance Other:: adderall, benzos Preferred Language: Spanish Communication Ability: Effective 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: No Beliefs That Will Affect Care: None marital status: Single Current Living Situation: Family Current Living Situation Comment: lives with parents and 16 yo daughter Other Information That Helps Us Care for You: No Feels Safe at Home: Yes Safety Concerns: Feels Safe At This Time Assistive Devices: None Review of Systems Gen- No fevers, chills HEENT- No MANZANARES, but right ear feels "stuffy, no sore throat or drainage CV- No chest pain Resp- No SOB or cough Abd- No N/V or diarrhea - NO dysuria MSK- No joint pain Skin - Facial rash, swelling as per HPI Physical Exam Gen- NAD, cooperative with exam HEENT- Eyes with minimal injection, no drainage. Edema improved with few areas of impetigo still present. Neck- ROM intact Resp- Normal respiratory rate on RA MSK- No joint swelling or erythema Ext- No edema Skin- No rash otherwise Results & Data Vital Signs (Past 12 Hours) Vital Signs Temp Pulse Pulse Resp BP Pulse Ox O2 Del Method 06/24/23 11:44 36.9 C 86 16 136/76 99 Room Air 06/24/23 08:00 79 06/24/23 09:45 Room Air 06/24/23 09:45 06/24/23 03:21 37.0 C 77 16 116/76 97 Room Air O2 Del Method 06/24/23 11:44 06/24/23 08:00 06/24/23 09:45 06/24/23 09:45 Room Air 06/24/23 03:21 Laboratory Results WBC 26.52 -> 10.14 Hgb 9.7 Platelets 271 Creatinine 0.72 BUN 5 Urine positive for amphetamines Diagnostic Findings Cultures from swab with MSSA HIV Ag/Ab negative HBV S Ag negative HCV Ab negative Urine with some lactobacillus
[2023-06-24] MEDS ORDERED: ceFAZolin 2000MG 2,000 MG/15 ML SYR IV SCH (16:00)
[2023-06-24] MEDS: AMOXICILLIN/CLAVULANATE 875 MG TAB PO SCH (16:07)
[2023-06-24] MEDS: metroNIDAZOLE 500 MG TAB PO SCH (20:04)
[2023-06-25] MEDS: KETOROLAC TROMETHAMINE 15 MG/ML VIAL IV PRN ×3 (00:40→13:03)
[2023-06-25 07:08] LABS: Hematocrit (blood only) 28.4 % (37.0-47.0); Hemoglobin 9.5 g/dl (12.0-16.0); Mean Corpuscular Hemoglobin 28.4 pg (25.0-34.0); Mean Corpuscular Hgb Conc 33.5 g/dL (32.0-36.0); Mean Corpuscular Volume 84.8 fL (80.0-100.0); Mean Platelet Volume 11.3 fL (9.4-12.4); Platelet Count 267 K/uL (130-400); RDW Coefficient of Variation 13.8 % (11.5-14.5); RDW Standard Deviation 42.9 fL (36.4-46.3); Red Blood Count 3.35 M/uL (4.20-5.40); White Blood Count 8.95 K/ul (4.8-10.8)
[2023-06-25 07:43] LABS: BUN Creatinine Ratio 12.5 (10-20); Calcium 8.8 mg/dl (8.6-10.3); Creatinine Clr Calc Pharmacy 93.3 ml/min; Est GFR (African American) 129.4 ml/min; Est GFR (Non-African American) 111.6 ml/min; Magnesium 1.8 mg/dl (1.7-2.4); Phosphorus 4.1 mg/dl (2.5-4.9); Potassium 3.7 mmol/L (3.5-5.1)
[2023-06-25] MEDS: ERYTHROMYCIN OP OINT 5 MG/GM 3.5 GM TUBE OP SCH ×2 (08:09→12:15)
[2023-06-25] MEDS: metroNIDAZOLE 500 MG TAB PO SCH (08:09)
[2023-06-25] MEDS: AMOXICILLIN/CLAVULANATE 875 MG TAB PO SCH (08:09)
[2023-06-25] MEDS: NICOTINE 14 MG/24 HR PATCH TD SCH (08:10)
[2023-06-25] MEDS: BACITRACIN OINT 14 GM TUBE EXT SCH (08:10)
[2023-06-25] MEDS ORDERED: ACETIC AC/HYDROCORTISONE OTIC 10ML BTL OT SCH (13:00)
--- NOTE | 2023-06-25 16:17 | Discharge Summary ---
Discharge Summary Date of Service June 25, 2023 Notes For Next Care Provider Medication Changes From Visit -Continue Augmentin twice daily until the prescription is completed -Continue Erythromycin ointment to your eyes four times daily while taking the a ugmentin -Continue Bacitracin to around the ears and areas of skin that are tender/open from skin sloughing -Metronidazole 500mg twice daily 5 days for gardenerella Admission HPI Per Admitting Provider This is a 42-year-old female with PMHx of methamphetamine drug abuse, tobacco use cigarettes 1 ppd previously, now vapes, AYLEEN who presents to the hospital with facial injury. Pt was seen in March for R ear pain, told she had outer and inner ear infection. A stent was placed in the R ear so that drops could be administered more easily. After that she feels it was better but not back to complete baseline. She has had issues in the R ear for years. This past On Saturday her face abd skin was completely normal. Saturday she woke up and her eyes were puffy, unable to open them, with redness. Over the past 2 days her face swelling has improved but can not open her eyes at all, with pus like exudate gluing her eyes shut. Pt has used black charcoal soap on her face and feels it has dried things out, but had used it previously. Pt also notes some bumps on her scalp behind her ears, which starte d yesterday. Denies fever, chills, sweats. She denies new cleanser use, exposure to chemical substances, drug use, inhalation, etc. Pt reports that she has been clean from methamphetamine for 2 years. Pt admits after discussion regarding of drug tox that she took valium that was given to her from friend a few days ago to help sleep. She vapes with nicotine and uses a few different vape pens, she last used vape this morning. Denies any recent new fills for vape. Admission Exam Per Admitting Provider On Exam, General: Erythematous tender skin over face and eyes Eyes: Eye shut with thick purulent secretion. Was only able to open the left eye myself, erythematous conjunctiva ENMT: Right ear: tragal tenderness, fullness behind TM. Difficulty visualizing left TM Neck: Normal visual inspection, no tracheal deviation, no swelling noted Respiratory: Normal respiratory effort, no respiratory distress, lungs clear to auscultation, no crackles and no wheezes Cardiovascular: RRR S1 S2 Gastrointestinal (Abdomen): Abdomen is not distended, soft, non-tender to palpation, no guarding, no palpable hepatosplenomegaly, normal bowel sounds Musculoskeletal: No pedal edema Genitourinary: No CVA tenderness Skin: Erythematous lesion in hair on head Neurologic: Alert and oriented x 3, No focal weakness, sensation grossly intact Psychiatric: Euthymic affect Principal Dx & Hospital Course #1 = Principal Diagnosis (1) Facial cellulitis: (2) Leukocytosis: (3) Methamphetamine abuse: (4) MDD (major depressive disorder): (5) AYLEEN (generalized anxiety disorder): (6) Tobacco use: (7) UTI (urinary tract infection): Plan Ms. Isaías Arredondo is a 42-year-old woman with PMHx of methamphetamine drug abuse, tobacco use cigarettes 1 ppd previously, now vapes, AYLEEN who was admitted due to concern of facial cellulitis. Multiple diffuse pustules behind ears and in scalp with notable swelling of periorbital area. Discussion with Dr. Sim, Dermatology, over tiger text revealed high suspicion for impetigo type skin manifestation. Unable to unroof pustule as tense top, limited 2/2 pain. Bacitracin to areas of skin sloughing, erythromycin to eyes. Improvement noted with current regimen After 72 hours of IV antibiotics, patient improved notable. Imaging and exam did not reveal signs of neurologic involvement. ID evaluated patient and recommended transition to PO regimen documented below. #Sepsis 2/2 presumptive facial cellulitis, staph on culture *improved #Staph Impetigo #Leukocytosis -Continue Augmentin twice daily until the prescription is completed -Continue Erythromycin ointment to your eyes four times daily while taking the augmentin -Continue Bacitracin to around the ears and areas of skin that are tender/open from skin sloughing #Methamphetamine abuse [Adderall misuse, denies other sources of methamphetamine] #Benzodiazepine abuse -Patient does not use any other illicit, to include "meth"--patient has misused adderall from a "friend" but denies other use of substances and does not exhibit drug seeking tendencies #AYLEEN Hx of such - Not currently on medication - noted use of valium as above -Stable #Tobacco Use - Encouraged cessation, will order nicotine patch #Abnormal UA #Gardnerella in UA -Metronidazole 500mg twice daily 5 days for gardenerella On day of discharge, patient was ambulating well, eating without difficulty and pain controlled with PO regimen. Discharge Exam Constitutional WD/WN, vitals as above Respiratory normal respiratory effort, lungs clear to auscultation Cardiovascular RRR, no murmur, no edema Skin facial skin with notable imrpovement, few areas of unroofed crusted pustules on right ear, eyes open without difficulty, Updated Medication List Medication Instructions Recorded Confirmed Type acetaminophen 500 mg tablet 1,000 mg PO Q6H PRN Pain 06/21/23 06/21/23 History (Tylenol Extra Strength) ibuprofen 200 mg tablet 400 mg PO Q6H PRN Pain 06/21/23 06/21/23 History amoxicillin 875 mg-potassium 1 tab PO BIDM 10 days #20 tabs 06/25/23 Rx clavulanate 125 mg tablet bacitracin 500 unit/gram topical 1 applic EXT TID #30 grams 06/25/23 Rx ointment erythromycin 5 mg/gram (0.5 %) eye 1 applic ophthalmic (eye) QID #100 06/25/23 Rx ointment grams metronidazole 500 mg tablet 500 mg PO BID 10 days #20 tabs 06/25/23 Rx [id number]-[id number]-fzsqqglxt 3.5 4 drp otic (ear) Q8H 7 days #10 mL 06/25/23 Rx mg/mL-10,000 unit/mL-1 % ear solution Hospital Stay Data Consultations 06/21/23 15:40 ED Decision to Admit Stat 06/21/23 16:13 Consult Infectious Diseases Stat Diagnostic Imagining Performed 06/21/23 15:23 CT mastoid w con Stat 06/23/23 15:04 MRI venography head [MR venography head wo con] Routine Pending Results Patient Have Any Pending Studies at Discharge: No Discharge Instructions Given to Patient (Per Discharging Provider) You were admitted due to notable facial swelling and infection. You were found to have severe staphylococcus impetigo, but not resistant to medications. You will continue the following regimen for Impetigo: -Continue Augmentin twice daily until the prescription is completed -Continue Erythromycin ointment to your eyes four times daily while taking the augmentin -Continue Bacitracin to around the ears and areas of skin that are tender/open from skin sloughing -Continue the steroid/vinegar (Vosol) ear drops while doing the above -Take Ibuprofen 800mg every 4-6 hours for pain control, as well as tylenol 650mg every 6 hours You were found to have a bacteria in your urine that can often cause bacterial vaginosis, Gardnerella. This can also be passed to sexual partners, though asymptomatic--it can contribute to discharge, odor and other intermediate card tender complications. -You will be sent with Metronidazole 500mg twice daily, please take a total of 10 tablets to complete the course (5 days), and give the additional 10 to your partner. Please follow up with your primary and OBGYN. Total Time Total Time Spent Total Time Spent (In Minutes): 35
[2023-06-26 14:12] LABS: HSV Type 1 DNA Not Detected (Not Detected); HSV Type 1&2 DNA Source Serum; HSV Type 2 DNA Not Detected (Not Detected)
== END 2023-06-25 14:24 | disposition home or self-care (01) | DRG 872 ==
LOC: ED 11:08 → 2E 16:21 → SUATTDRO 16:21 → 2E 19:44